=== PATIENT | female | born 1950 | race Caucasian/White ===

== ENCOUNTER 2017-01-21 14:32 | Observation (INO) ==
[2017-01-21] MEDS ORDERED: Ondansetron 4 MG/2 ML VIAL IVP ONE (17:36)
[2017-01-21] MEDS ORDERED: *HR* HYDROmorphone (PF) 1 MG/ML SYRINGE IVP ONE ×2 (17:36→19:21)
--- NOTE | 2017-01-21 17:39 | Emergency Department Note ---
Disposition Clinical Impression: Ureterolithiasis UTI (urinary tract infection) Qualifiers: Urinary tract infection type: acute cystitis Hematuria presence: without hematuria Qualified Code(s): N30.00 - Acute cystitis without hematuria Disposition: Admitted As Inpatient Condition: Good Referrals: Vandana Heart, EMPLOYEE BENEFITS COORDINATOR [Primary Care Provider] - Forms: Work/School Release, ED Satisfaction Letter Time of Disposition: 19:41 Abdominal Pain HPI - General Chief Complaint: ED Abdominal Pain Stated Complaint: Lower Back Pain N/V Time Seen by Provider: 01/21/17 17:28 Source: patient Mode of arrival: ambulatory Limitations: no limitations Nursing Notes Reviewed: Yes Vital Signs Reviewed: Yes - History of Present Illness HPI Narrative: 66-year-old with acute onset of left flank and left lower quadrant pain earlier today. The pain started she started to have vomiting. Patient has never had a kidney stone but thinks that this may be what is going on. Pt Subjective Complaint: abdominal pain, flank pain Onset (ago): Just IN [employer] Consistency: constant Location: LLQ, L flank Pain Severity: moderate Pain Scale: 5 Quality: aching Radiation: none Migration to: no migration Improves with: nothing Worsens with: nothing Associated symptoms: Reports: nausea Treatments prior to arrival: none - Related Data Allergies Allergy/AdvReac Type Severity Reaction Status Date / Time No Known Allergies Allergy Verified 01/21/17 14:58 All systems ED: reviewed and negative except as stated. Constitutional: Denies: fever, chills, weakness, weight change Eyes: Denies: eye pain, eye discharge, vision change ENT ED: Denies: ear pain, throat pain, dental pain, hearing loss, epistaxis, congestion, dysphagia Cardiovascular: Denies: chest pain, palpitations, dyspnea on exertion, edema, syncope Respiratory: Denies: cough, dyspnea, wheezes, hemoptysis, stridor Gastrointestinal: Reports: abdominal pain. Denies: nausea, vomiting, diarrhea, constipation, hematemesis, melena, hematochezia Genitourinary: Denies: dysuria, frequency, hematuria, discharge Musculoskeletal: Reports: back pain. Denies: neck pain, arthralgia, myalgia Integumentary: Denies: rash, abrasion, lesions Neurological: Denies: headache, weakness, numbness, paresthesias, confusion, abnormal gait, vertigo Psychiatric: Denies: anxiety, depression, suicidal thoughts, homicidal thoughts , auditory hallucinations, visual hallucinations Endocrine: Denies: fatigue Hematological/Lymphatic: Denies: easy bleeding, easy bruising Allergic/Immunologic: Denies: facial swelling, urticaria Abdominal Pain PMH - Past Medical History Medical history: Reports: thyroid disease Psychiatric history: Reports: no psych history - Social History Smoking status: Never smoker Alcohol use: Reports: rarely Drug use: Reports: none Physical Exam - General Limitations: no limitations General appearance: alert, in no apparent distress - Head Head exam: atraumatic, normocephalic, normal inspection - Eye Eye exam: Present: normal appearance, PERRL, EOMI - ENT ENT exam: normal exam, normal oropharynx, mucous membranes moist - Neck Neck exam: Present: normal inspection, full ROM, trachea midline - Chest Chest inspection: Present: normal inspection, symmetric chest wall rise - Respiratory Respiratory exam: Present: normal lung sounds bilaterally - Cardiovascular Cardiovascular exam: Present: regular rate, normal rhythm, normal heart sounds - Abdominal Exam Abdominal exam: Present: soft, Non-Tender. Absent: tenderness, distention, guarding, rebound, rigidity - Extremities Exam Extremities exam: Present: normal inspection, full ROM. Absent: tenderness, pedal edema - Expanded Lower Extremity Exam Neurovascular/Tendon exam: Absent: motor deficit, sensory deficit, tendon deficit Gait: observed and normal - Back Exam Back exam: Present: normal inspection, full ROM. Absent: tenderness - Neurological Exam Neurological exam: Present: alert, oriented X3 - Psychiatric Psychiatric exam: Present: normal affect, normal mood - Skin Skin exam: Present: warm, dry, intact, normal color Course - Reevaluation(s) Reevaluation #1: 66-year-old comes in with flank pain is found to have a 5 mm distal left ureteral stone with hydronephrosis. Urine appears to be infected with white cells and red cells and bacteria. Patient will be admitted to urology for stone extraction. Time: 19:40 - Consultations Consultation #1: Discussed with Dr. Camacho who will admit the patient. Time: 19:40 Vital Signs Temperature 98.3 F 01/21/17 14:58 Pulse Rate 106 01/21/17 14:58 Respiratory Rate 16 01/21/17 14:58 Blood Pressure 184/98 01/21/17 14:58 O2 Sat by Pulse Oximetry 93 01/21/17 14:58 Temperature 98.3 F 01/21/17 14:58 Pulse Rate 106 01/21/17 14:58 Respiratory Rate 16 01/21/17 14:58 Blood Pressure 184/98 01/21/17 14:58 O2 Sat by Pulse Oximetry 93 01/21/17 14:58 Oxygen Delivery Oxygen Delivery Room Air Abdominal Pain - Lab Data Lab results reviewed: Yes I reviewed the patient's lab results. Result diagrams: 01/21/17 18:25 01/21/17 18:25 Lab Results 01/21/17 01/21/17 01/21/17 Range/Units 17:33 18:25 18:25 WBC 19.7 H (4.3-11.1) K/mcL RBC 5.09 H (3.82-4.97) M/mcL Hgb 15.8 H (11.5-15.4) g/dL Hct 46.5 H (35.3-44.9) % MCV 91.4 (83.0-100.0) fL MCH 31.0 (28.0-33.3) pg MCHC 34.0 (31.6-35.5) g/dL RDW 12.8 (11.5-14.5) % Plt Count 154 (140-400) K/mcL MPV 8.7 L (9.4-12.4) fL Immature Gran % 0.4 (0-4) % Seg Neutrophils % 89.1 % Lymphocytes % 4.2 % Monocytes % 6.1 % Eosinophils % 0.0 % Basophils % 0.2 % Neutrophils # 17.5 H (1.6-8.9) K/mcL Lymphocytes # 0.8 (0.6-4.6) K/mcL Monocytes # 1.2 (0.0-1.3) K/mcL Eosinophils # 0.0 (0.0-0.6) K/mcL Basophils # 0.0 (0.0-0.2) K/mcL Sodium 139 (136-145) mEq/L Potassium 4.2 (3.5-4.5) mEq/L Chloride 107 (98-109) mEq/L Carbon Dioxide 24 (19-29) mEq/L BUN 19 (7-20) mg/dL Creatinine 0.81 (0.57-1.11) mg/dL Est GFR ( Amer) > 60 (> 60) Est GFR (Non-Af Amer) > 60 (> 60) BUN/Creatinine Ratio 23 (6-26) Glucose 141 H (70-99) mg/dL Calculated Osmolality 293 (280-300) Calcium 11.6 H (8.6-10.8) mg/dL Total Bilirubin 0.6 (0.2-1.2) mg/dL Direct Bilirubin 0.3 (0.0-0.5) mg/dL Indirect Bilirubin 0.3 (0.0-1.2) mg/dL AST 22 (5-34) Units/L ALT 26 (0-55) Units/L Alkaline Phosphatase 110 (38-126) Units/L Serum Total Protein 7.1 (6.0-8.3) g/dL Albumin 3.7 (3.5-5.0) g/dL Globulin 3.4 (2.4-3.5) g/dL Albumin/Globulin Ratio 1.1 (1.1-2.2) Lipase < 10 (8-78) Units/L Urine Color Yellow (Yellow) Urine Clarity Slightly Hazy (Clear) Urine pH 6.5 (5.0-8.0) pH Units Ur Specific Davison 1.019 (1.010-1.025) Urine Protein 30 H (Neg-Trace) mg/dL Urine Glucose (UA) Normal (Normal) mg/dL Urine Ketones 15 H (Negative) mg/dL Urine Blood Large H (Negative) Urine Nitrite Negative (Negative) Urine Bilirubin Negative (Negative) Urine Urobilinogen Normal (Normal) mg/dL Ur Leukocyte Esterase Moderate H (Negative) Urine Microscopic RBC 30-50 H (0-3) per hpf Urine Microscopic WBC 30-50 H (0-3) per hpf Ur Squamous Epith Cells Few (None-Few) per lpf Urine Bacteria Moderate H (None-Few) per hpf Hyaline Casts None Seen (None-Few) per lpf Ur Culture Indicated? YES A (NO) - Radiology Data Radiology results reviewed: Yes I reviewed the patient's radiology results. Abdomen/Pelvis CT 01/21/17 17:34 IMPRESSION: 1. There is a 5 mm stone within the distal left ureter, resulting in moderate left-sided hydronephrosis. 2. Multiple bilateral nonobstructing renal calculi. 3. Cholelithiasis. 4. Colonic diverticulosis. D/ / 01/21/2017 18:25:53 Young Sanderson MD / doni Interpreting Provider: Young Sanderson MD
[2017-01-21 17:45] LABS: Bilirubin,Urine Negative (Negative); Blood,Urine Large (Negative); Color,Urine Yellow (Yellow); Glucose,Urine (UA) Normal (Normal); Ketones,Urine 15 mg/dL (Negative); Leukocyte Esterase,Urine Moderate (Negative); Nitrite,Urine Negative (Negative); PH,Urine 6.5 pH Units (5.0-8.0); Protein,Urine 30 mg/dL (Neg-Trace); Specific Gravity,Urine 1.019 (1.010-1.025); Urobilinogen,Urine Normal (Normal)
[2017-01-21 17:47] LABS: Hyaline Casts,Urine None Seen per lpf (None-Few)
[2017-01-21 17:48] LABS: Clarity,Urine Slightly Hazy (Clear)
[2017-01-21 17:58] LABS: Squamous Epithelial Cell,Urine Few per lpf (None-Few)
[2017-01-21 17:59] LABS: RBC,Urine 30-50 per hpf (0-3); WBC,Urine 30-50 per hpf (0-3)
[2017-01-21 18:01] LABS: Bacteria,Urine Moderate per hpf (None-Few)
[2017-01-21 18:39] LABS: Basophils % 0.2 %; Hematocrit 46.5 % (35.3-44.9); Hemoglobin 15.8 g/dL (11.5-15.4); Immature Granulocytes % 0.4 % (0-4); Lymphocytes # 0.8 K/mcL (0.6-4.6); Lymphocytes % 4.2 %; Mean Corpuscular Volume 91.4 fL (83.0-100.0); Mean Platelet Volume 8.7 fL (9.4-12.4); Monocytes # 1.2 K/mcL (0.0-1.3); Monocytes % 6.1 %; Neutrophils # 17.5 K/mcL (1.6-8.9); Platelet Count 154 K/mcL (140-400); Red Blood Count 5.09 M/mcL (3.82-4.97); Red Cell Distribution Width 12.8 % (11.5-14.5); Segmented Neutrophils % 89.1 %
[2017-01-21 18:54] LABS: Alanine Aminotransferase 26 Units/L (0-55); Albumin 3.7 g/dL (3.5-5.0); Albumin/Globulin Ratio 1.1 (1.1-2.2); Alkaline Phosphatase 110 Units/L (38-126); Aspartate Amino Transferase 22 Units/L (5-34); BUN/Creatinine Ratio 23 (6-26); Bilirubin,Direct 0.3 mg/dL (0.0-0.5); Bilirubin,Indirect 0.3 mg/dL (0.0-1.2); Bilirubin,Total 0.6 mg/dL (0.2-1.2); Blood Urea Nitrogen 19 mg/dL (7-20); Calcium 11.6 mg/dL (8.6-10.8); Carbon Dioxide 24 mEq/L (19-29); Chloride 107 mEq/L (98-109); Globulin 3.4 g/dL (2.4-3.5); Glucose 141 mg/dL (70-99); Osmolality,Calculated 293 (280-300); Sodium 139 mEq/L (136-145); Total Protein 7.1 g/dL (6.0-8.3); eGFR For African Americans > 60 (> 60); eGFR For Non-African Americans > 60 (> 60)
[2017-01-21 18:56] LABS: Lipase < 10 Units/L (8-78); Potassium 4.2 mEq/L (3.5-4.5)
[2017-01-21] MEDS ORDERED: Naloxone 0.4 MG/ML INJ IVP PRN (20:31)
[2017-01-21] MEDS ORDERED: *HR* Morphine 2 MG/ML SYRINGE IVP PRN (20:31)
[2017-01-21] MEDS ORDERED: Ondansetron 4 MG/2 ML VIAL IVP PRN (20:31)
[2017-01-21] MEDS ORDERED: *HR* Promethazine 25 MG/ML VIAL IVP PRN (20:31)
--- NOTE | 2017-01-21 20:39 | Urology History & Physical ---
Date of Encounter: 01/22/17 Time of Encounter: 20:37 Assessment and Plan (1) Ureteral stone with hydronephrosis Current Visit: Yes Status: Acute Because of her pain and acute illness we'll proceed with a ureteroscopic stone extraction with holmium laser lithotripsy. Procedure was discussed in detail including potential risks of injury to her urinary tract, stricture, worsening infection, inability to retrieve the stone, stent complications her discomfort. We did discuss trial of passage as an alternative therapy (2) Elevated WBC count Current Visit: Yes Status: Acute Leukocytosis may be due to infection or reaction to the stone. Continue antibiotics. Follow urine culture. Qualifiers: Leukocytosis type: unspecified Qualified Code(s): D72.829 - Elevated white blood cell count, unspecified History of Present Illness Chief complaint: flank pain and N/V HPI: Ms. Sandra is a 66 year old female presented to the ER with severe flank and abdominal pain along with nausea vomiting. CT scan shows a 5 mm distal ureteral calculi. White cell count at 19,000. fever overnight to 100.3 Past Med Surg Social Fam HX - Past Medical History Medical history: thyroid disease Psychiatric history: no psych history - Social History Smoking Status: Never smoker Smokeless Tobacco Status: No Alcohol use: rarely Drug use: none Medications and Allergies Aspirin Enteric Coated [Aspirin EC] 81 mg PO DAILY 01/21/17 [History] Levothyroxine [Synthroid] 175 mcg PO 0630 01/21/17 [History] Multivitamin [Multi-Day Vitamins] 1 each PO DAILY 01/21/17 [History] 3 Allergy/AdvReac Type Severity Reaction Status Date / Time No Known Allergies Allergy Verified 01/21/17 14:58 Review of Systems - Constitutional malaise, no chills, no fever(s) - EENT Nose, mouth and throat: no dizziness - Cardiovascular no chest pain - Respiratory no cough - Gastrointestinal abdominal pain, nausea, vomiting - Genitourinary Genitourinary: flank pain - Musculoskeletal back pain - Integumentary no erythema - Neurological no confusion - Psychiatric no anxiety - Hematologic/Lymphatic no easy bleeding - Allergic/Immunologic no throat swelling Exam Initial Vital Signs Temp Pulse Resp BP Pulse Ox 98.3 F 106 16 184/98 93 01/21/17 14:58 01/21/17 14:58 01/21/17 14:58 01/21/17 14:58 01/21/17 14:58 - General physical appearance Present: well developed, moderate pain - Eyes Present: PERRL - ENT Present: normal nares - Neck Present: no masses - Respiratory Present: normal respiratory effort - Cardiovascular Cardiovascular exam IM: RRR - Abdomen Abdomen: Present: soft - Integumentary Present: no rash, no abnormal pigmentation - Neurologic Present: normal coordination - Musculoskeletal Present: normal gait Urology Results - Labs 01/22/17 04:56 01/22/17 04:56 Abnormal lab results WBC 19.7 K/mcL (4.3-11.1) H 01/21/17 18:25 RBC 5.09 M/mcL (3.82-4.97) H 01/21/17 18:25 Hgb 15.8 g/dL (11.5-15.4) H 01/21/17 18:25 Hct 46.5 % (35.3-44.9) H 01/21/17 18:25 MPV 8.7 fL (9.4-12.4) L 01/21/17 18:25 Neutrophils # 17.5 K/mcL (1.6-8.9) H 01/21/17 18:25 Glucose 141 mg/dL (70-99) H 01/21/17 18:25 Calcium 11.6 mg/dL (8.6-10.8) H 01/21/17 18:25 Urine Protein 30 mg/dL (Neg-Trace) H 01/21/17 17:33 Urine Ketones 15 mg/dL (Negative) H 01/21/17 17:33 Urine Blood Large (Negative) H 01/21/17 17:33 Ur Leukocyte Esterase Moderate (Negative) H 01/21/17 17:33 Urine Microscopic RBC 30-50 per hpf (0-3) H 01/21/17 17:33 Urine Microscopic WBC 30-50 per hpf (0-3) H 01/21/17 17:33 Urine Bacteria Moderate per hpf (None-Few) H 01/21/17 17:33 Ur Culture Indicated? YES (NO) A 01/21/17 17:33 All other labs normal.
[2017-01-21] MEDS: *HR* HYDROmorphone (PF) 1 MG/ML SYRINGE IVP PRN (21:36)
[2017-01-21] MEDS: 0.9 % Sodium Chloride 1,000 ML IVC SCH (21:43)
[2017-01-21] MEDS: Ketorolac 15 MG/ML VIAL IVP PRN (21:59)
[2017-01-22] MEDS: *HR* HYDROmorphone (PF) 1 MG/ML SYRINGE IVP PRN ×3 (01:49→14:18)
[2017-01-22] MEDS: Ketorolac 15 MG/ML VIAL IVP PRN (03:58)
[2017-01-22 06:09] LABS: BUN/Creatinine Ratio 23 (6-26); Basophils % 0.2 %; Blood Urea Nitrogen 20 mg/dL (7-20); Calcium 10.7 mg/dL (8.6-10.8); Carbon Dioxide 24 mEq/L (19-29); Chloride 107 mEq/L (98-109); Eosinophils % 0.1 %; Glucose 120 mg/dL (70-99); Hemoglobin 14.3 g/dL (11.5-15.4); Immature Granulocytes % 0.3 % (0-4); Lymphocytes # 0.5 K/mcL (0.6-4.6); Lymphocytes % 3.8 %; Mean Corpuscular HGB Conc 33.3 g/dL (31.6-35.5); Mean Corpuscular Hemoglobin 30.7 pg (28.0-33.3); Mean Corpuscular Volume 92.3 fL (83.0-100.0); Mean Platelet Volume 8.9 fL (9.4-12.4); Monocytes # 0.6 K/mcL (0.0-1.3); Monocytes % 4.7 %; Neutrophils # 11.5 K/mcL (1.6-8.9); Osmolality,Calculated 292 (280-300); Platelet Count 150 K/mcL (140-400); Potassium 4.1 mEq/L (3.5-4.5); Red Blood Count 4.66 M/mcL (3.82-4.97); Red Cell Distribution Width 13.2 % (11.5-14.5); Segmented Neutrophils % 90.9 %; Sodium 139 mEq/L (136-145); eGFR For African Americans > 60 (> 60); eGFR For Non-African Americans > 60 (> 60)
[2017-01-22] MEDS: 0.9 % Sodium Chloride 1,000 ML IVC SCH ×2 (07:27→18:40)
--- NOTE | 2017-01-22 16:21 | Anesthesia Evaluation PreOp ---
Date of Encounter: 01/22/17 Time of Encounter: 16:19 - Past History Planned Operation: Left Ureteroscopic Stone Extractoin Cardiac History: Denies any Significant Hx Pulmonary History: Denies Any Significant HX ULTIMATE HOOPS TRAINER History: Denies Any Significant HX Other Medical History: Thyroid Anesthesia History: No Prior Anesthetic Complications, Past Anesthesia Alcohol Use: rarely Drug use: none Medications and Allergies Aspirin Enteric Coated [Aspirin EC] 81 mg PO DAILY 01/21/17 [History] Levothyroxine [Synthroid] 175 mcg PO 0630 01/21/17 [History] Multivitamin [Multi-Day Vitamins] 1 each PO DAILY 01/21/17 [History] 3 Allergy/AdvReac Type Severity Reaction Status Date / Time No Known Allergies Allergy Verified 01/21/17 14:58 - Meds/Allergy Pre-op Review Medications Reviewed: Yes Allergies Reviewed: Yes Beta Blockers on Current Med List: No Anesthesia Results - Labs 01/22/17 04:56 01/22/17 04:56 Anesthesia Exam Vital Signs/O2 Sat/Glucose, Most Recent Temp Pulse Resp BP Pulse Ox 98.4 F 84 18 115/68 93 01/22/17 15:46 01/22/17 15:46 01/22/17 15:46 01/22/17 15:46 01/22/17 15:46 Blood Glucose* 101 Height: 5'9''/1.75 m Weight: 217 lbs/98.7 kg NPO (# of Hours): 8 Pain Scale: 0 Pain Scale Used: Numeric (1 - 10) - HEENT Pupil (Motor): EOMI Mallampati: II Teeth: Normal Oral Opening: Greater than 3 - ULTIMATE HOOPS TRAINER LOC: Oriented ULTIMATE HOOPS TRAINER Motor: Normal RUE, Normal LUE, Normal RLE, Normal LLE, Normal Face ULTIMATE HOOPS TRAINER Sensory: Normal: RUE, LUE, RLE, LLE, Face - Cardiac Rhythm: Regular Murmur: None - Pulmonary Breath Sounds: bilateral Clear Respiratory Effort: Symmetrical Anesthesia Assess/Plan ASA Score: 2 Modified Melvin Scale for Level of Consciousness: Cooperative, oriented, and tranquil Anesthetic Plan: General Monitoring Plan: Standard Monitors Recovery Plan: PACU
--- NOTE | 2017-01-22 16:37 | Operative Note ---
Date of procedure: 01/22/17 Pre-op diagnosis: 5 mm left distal ureteral stone Post-op diagnosis: same Procedure: left ureteroscopic stone extraction with holium laser left retrograde pyelogram left JJ stent Anesthesia: GETA Surgeon: Colt Camacho Estimated blood loss (cc): 0 Specimen: stone Condition: stable Procedure in Detail: PROCEDURE IN DETAIL: Patient was taken back to the operating room, positioned supine on the operating table. Anesthesia was applied without complication. They were moved into dorsal lithotomy. Careful attention was maintained to cushion all pressure points for patient's safety. They were prepped and draped in sterile fashion. Time-out was performed with the proper patient and procedure. A 21-[place] rigid cystoscope was inserted into the bladder without difficulty. Systematic examination of bladder revealed no abnormalities. The ureteral orifice was cannulated using a 5-B[place]an ureteral Catheter and a retrograde pyelogram was performed using Isovue. A filling defect was identified which corresponded to the stone. At that point, a zip wire was placed through the 5-[place] and confirmed in the renal pelvis with fluoroscopy. An 8-10 dilator was then placed over the zip wire to passively dilate the ureteral orifice. A semi-rigid ureteroscope was carefully inserted into the bladder and guided into the ureteral oriface. At that point, the stone was encountered and I felt that it required fragmentation for safe extraction. a moderate amount of purulent urine returned after I reached the stone but I felt it appropriate to complete the stone extraction as it added minimal manipulation. A 200 micron holmium laser fiber on a setting of 8 and 800 was used to fragment the stone into multiple pieces. The fragments were individually basketed out of the ureter with a 1.9 tipless basket. All stone in the ureter was removed. A 4.8 x 26 ureteral stent was placed over the zip wire under fluoroscopy without complication. The bladder was drained along with the stone fragments. They were collected and sent for stone analysis. no string was left attached.
[2017-01-22] MEDS ORDERED: *HR* FentaNYL (PF) 100 MCG/2 ML VIAL ONE (16:49)
[2017-01-22] MEDS ORDERED: Ondansetron 4 MG/2 ML VIAL ONE (16:50)
[2017-01-22] MEDS ORDERED: Propofol 500 MG/50 ML INFUS..BTL ONE (16:50)
[2017-01-22] MEDS ORDERED: Dexamethasone 4 MG/ML VIAL ONE (16:50)
[2017-01-22] MEDS ORDERED: Lidocaine -MPF 2% 2 ML VIAL ONE (16:50)
[2017-01-22] MEDS ORDERED: Ondansetron 4 MG/2 ML VIAL IVP PRN ×2 (16:52→18:09)
[2017-01-22] MEDS ORDERED: *HR* HYDROmorphone (PF) 1 MG/ML SYRINGE IVP PRN ×2 (16:52→18:09)
[2017-01-22] MEDS ORDERED: Acetaminophen IV 1,000 MG/100 ML INFUS..BTL ONE (17:23)
[2017-01-22] MEDS ORDERED: Acetaminophen IV 1,000 MG/100 ML INFUS..BTL IVPB ONE (17:26)
--- NOTE | 2017-01-22 18:04 | Anesthesia Evaluation Post Op ---
Date of Encounter: 01/22/17 Time of Encounter: 18:04 - Vital Signs Vital Signs: Vital Signs/O2 Sat, Most Current Temp Pulse Resp BP Pulse Ox 100.3 F H 102 14 118/54 93 01/22/17 17:50 01/22/17 18:00 01/22/17 18:00 01/22/17 18:00 01/22/17 18:00 - Lungs Lungs: Clear Ascult./Percussion - Airway Airway: Non-obstructed - Cardiovascular Regular Rate - Mental Status Mental Status: Asleep with brisk response to light stimulation - Pain Pain Scale: 0 Pain Scale used: Numeric (1 - 10) - Nausea Vomiting Nausea Vomiting: Not Present - Hydration Hydration: NPO, Has not voided - Discharge PostOp Status: Transfer Patient to floor
[2017-01-22] MEDS ORDERED: Naloxone 0.4 MG/ML INJ IVP PRN (18:09)
[2017-01-22] MEDS ORDERED: *HR* OxyCODONE/APAP 5/325 TABLET PO PRN (18:09)
[2017-01-22] MEDS ORDERED: *HR* Promethazine 25 MG/ML VIAL IVP PRN (18:09)
[2017-01-22] MEDS ORDERED: Ketorolac 15 MG/ML VIAL IVP PRN (18:09)
[2017-01-22] MEDS ORDERED: Hyoscyamine SL 0.125 MG TAB.SUBL SL PRN (18:09)
[2017-01-23] MEDS: 0.9 % Sodium Chloride 1,000 ML IVC SCH (05:52)
--- NOTE | 2017-01-23 06:23 | Discharge Summary ---
Date of Encounter: 01/23/17 Time of Encounter: 06:21 - Discharge Diagnosis (1) Ureteral stone with hydronephrosis Priority: Primary Status: Resolved (2) Elevated WBC count Priority: Secondary Status: Resolved Qualifiers: Leukocytosis type: unspecified Qualified Code(s): D72.829 - Elevated white blood cell count, unspecified - Discharge Medications Prescriptions: OxyCODONE/APAP 5/325 [Percocet 5/325 MG] 1 each PO Q4HR PRN #15 tab PRN Reason: Mild to moderate pain (1-6) Levofloxacin [Levaquin] 500 mg PO DAILY #10 tablet Phenazopyridine [Pyridium] 200 mg PO TID PRN #20 tab PRN Reason: burning with urination Home Medications: Aspirin Enteric Coated [Aspirin EC] 81 mg PO DAILY 01/21/17 [History] Levothyroxine [Synthroid] 175 mcg PO 0630 01/21/17 [History] Multivitamin [Multi-Day Vitamins] 1 each PO DAILY 01/21/17 [History] Levofloxacin [Levaquin] 500 mg PO DAILY #10 tablet 01/23/17 [Rx] OxyCODONE/APAP 5/325 [Percocet 5/325 MG] 1 each PO Q4HR PRN #15 tab 01/23/17 [Rx ] Phenazopyridine [Pyridium] 200 mg PO TID PRN #20 tab 01/23/17 [Rx] Allergies/Adverse Reactions: 3 Allergy/AdvReac Type Severity Reaction Status Date / Time No Known Allergies Allergy Verified 01/21/17 14:58 Labs on day of discharge: Labs from last 24 hours 01/22/17 01/22/17 11:28 05:54 POC Glucose 101 H 118 H - Impressions ITS Impressions Fluoroscopy 01/22/17 16:52 IMPRESSION: Intraprocedural fluoroscopic images demonstrate ongoing placement of double-J ureteral stent. Please see separately dictated procedural note for complete intraprocedural findings. D/ / Russ Collins MD / Russ Collins MD Interpreting Provider: Russ Collins MD Date of admission: 01/21/17 20:04 Primary care physician: Vandana eHart CNP Discharging clinician: Colt Camacho Anticipated date of discharge: 01/23/17 - Patient Status Disposition: Home, Self-Care Condition: Good Functional capacity at discharge: independent ambulation Overall status at discharge: patient is progressing back to baseline - Discharge Instructions Follow Up With: Vandana Heart CNP [Primary Care Provider] - Colt Camacho MD [Partnered Physician] - (1-2 weeks for cystoscopy stent removal) Additional Instructions: Expect stent discomfort including urgency, frequency, burning on urination, light blood in the urine, flank pain during urination. Low-grade temperature is not concerning. Call if persistent fever over 102 - Diet and Activity Activity: increase activity as tolerated Diet: advance to your usual diet - Hospital Course Hospital course: Ms. Sandra is a 66 year old female postoperative day #1 status post stone extraction and stent placement. Likely associated infection but no fever overnight. She feels much better. No nausea. No pain. Urine cultures inconclusive. Will send home on Levaquin - Time Spent with Patient Total time spent providing and/or coordinating discharge services: Less than 30 minutes Exam Initial Vital Signs Temp Pulse Resp BP Pulse Ox 98.3 F 106 16 184/98 93 01/21/17 14:58 01/21/17 14:58 01/21/17 14:58 01/21/17 14:58 01/21/17 14:58 - General physical appearance Present: well developed, no distress - VTE Documentation of Mechanical Device: Intermittent pneumatic compression device
[2017-01-23 10:19] VITALS: BP 95/58
== END 2017-01-23 16:30 | disposition home or self-care (01) ==
LOC: EMEROO 14:32 → 3ANU 14:32
PROVIDERS: ADMIT Urology; ATTEND Urology

== ENCOUNTER 2018-05-03 11:28 | Observation (INO) ==
[2018-05-03] MEDS ORDERED: 0.9 % Sodium Chloride 1,000 ML IVC ONE (12:06)
[2018-05-03] MEDS ORDERED: Ondansetron 4 MG/2 ML VIAL IVP ONE ×2 (12:06→18:15)
[2018-05-03] MEDS ORDERED: *HR* HYDROmorphone (PF) 1 MG/ML SYRINGE IVP ONE (12:06)
[2018-05-03 12:27] LABS: Basophils % 0.2 %; Eosinophils % 0.1 %; Hematocrit 43.2 % (35.3-44.9); Hemoglobin 13.8 g/dL (11.5-15.4); Immature Granulocytes % 0.5 % (0-4); Lymphocytes # 0.9 K/mcL (0.6-4.6); Lymphocytes % 6.8 %; Mean Corpuscular HGB Conc 31.9 g/dL (31.6-35.5); Mean Corpuscular Hemoglobin 28.9 pg (28.0-33.3); Mean Corpuscular Volume 90.6 fL (83.0-100.0); Mean Platelet Volume 8.5 fL (9.4-12.4); Monocytes # 0.6 K/mcL (0.0-1.3); Monocytes % 4.5 %; Neutrophils # 11.4 K/mcL (1.6-8.9); Platelet Count 228 K/mcL (140-400); Red Blood Count 4.77 M/mcL (3.82-4.97); Segmented Neutrophils % 87.9 %
[2018-05-03 12:48] LABS: Alanine Aminotransferase 20 Units/L (7-52); Albumin/Globulin Ratio 1.2 (1.1-2.2); Alkaline Phosphatase 88 Units/L (34-104); Aspartate Amino Transferase 18 Units/L (13-39); BUN/Creatinine Ratio 16 (6-26); Bilirubin,Direct 0.1 mg/dL (0.0-0.2); Bilirubin,Indirect 0.4 mg/dL (0.0-1.2); Bilirubin,Total 0.5 mg/dL (0.3-1.0); Blood Urea Nitrogen 10 mg/dL (8-23); Calcium 11.3 mg/dL (8.6-10.3); Carbon Dioxide 27 mEq/L (23-29); Chloride 104 mEq/L (98-107); Globulin 3.4 g/dL (2.4-3.5); Glucose 145 mg/dL (70-105); Lipase 6 Units/L (11-82); Osmolality,Calculated 290 (280-300); Potassium 3.7 mEq/L (3.5-5.1); Sodium 139 mEq/L (136-145); Total Protein 7.4 g/dL (6.4-8.9); Troponin I < 0.03 ng/mL (< 0.04); eGFR For Non-African Americans > 60 (> 60)
[2018-05-03 14:09] LABS: Bilirubin,Urine Negative (Negative); Blood,Urine Moderate (Negative); Clarity,Urine Cloudy (Clear); Color,Urine Yellow (Yellow); Glucose,Urine (UA) Normal (Normal); Ketones,Urine 15 mg/dL (Negative); Leukocyte Esterase,Urine Large (Negative); Nitrite,Urine Positive (Negative); PH,Urine 7.5 pH Units (5.0-8.0); Protein,Urine Trace mg/dL (Neg-Trace); Specific Gravity,Urine 1.008 (1.010-1.025); Urobilinogen,Urine Normal (Normal)
[2018-05-03 14:12] LABS: Bacteria,Urine Many per hpf (None-Few); Hyaline Casts,Urine None Seen per lpf (None-Few); RBC,Urine 15-30 per hpf (0-3); Squamous Epithelial Cell,Urine None Seen per lpf (None-Few); WBC,Urine 50-100 per hpf (0-3)
[2018-05-03] MEDS ORDERED: cefTRIAXone 1,000 MG in Water for inj. (sterile) 20 ML 10 ML IVP ONE (14:37)
--- NOTE | 2018-05-03 14:41 | Emergency Department Note ---
Disposition Clinical Impression: Kidney stone UTI (urinary tract infection) Qualifiers: Urinary tract infection type: site unspecified Hematuria presence: with hematuria Qualified Code(s): N39.0 - Urinary tract infection, site not specified Disposition: Admitted As Inpatient Condition: Good Abdominal Pain HPI - General Chief Complaint: ED Abdominal Pain Stated Complaint: Possible kidney stone Time Seen by Provider: 05/03/18 12:01 Source: patient, family Mode of arrival: ambulatory Limitations: no limitations Nursing Notes Reviewed: Yes Vital Signs Reviewed: Yes - History of Present Illness HPI Narrative: Patient presents for evaluation of lower abdominal pain. Patient states feels similar to previous kidney stone. Patient states that she recently started getting kidney stones after she was diagnosed with parathyroid disease. Patient's pain radiates across the lower abdomen as well as lower back. She is not had significant dysuria or vaginal discharge. No fevers or chills but nausea with multiple episodes of nonbloody nonbilious emesis. Patient will undergo further evaluation of possible kidney stone Pain Scale: 1 - Related Data Home Medications Medication Instructions Recorded Confirmed RX: Aspirin Enteric Coated 81 mg PO DAILY 01/21/17 05/03/18 [Aspirin EC] RX: Levothyroxine [Synthroid] 175 mcg PO QAM 01/21/17 05/03/18 Multivitamin [One Daily Essential] 1 each PO DAILY 03/09/18 05/03/18 Allergies Allergy/AdvReac Type Severity Reaction Status Date / Time No Known Allergies Allergy Verified 05/03/18 15:23 All systems ED: reviewed and negative except as stated. Review of Systems: As Per HPI Constitutional: Denies: fever, chills ENT ED: Denies: congestion Cardiovascular: Denies: chest pain, palpitations Respiratory: Denies: cough, dyspnea Gastrointestinal: Reports: abdominal pain, nausea, vomiting (No blood or bile). Denies: diarrhea, constipation Genitourinary: Denies: urgency, dysuria, frequency, hematuria Musculoskeletal: Denies: back pain Integumentary: Denies: rash Neurological: Denies: headache Endocrine: Reports: fatigue Abdominal Pain PMH - Past Medical History Medical history: Reports: kidney stones, thyroid disease Female Surgical History: Reports: other Psychiatric history: Reports: no psych history - Social History Smoking status: Never smoker Alcohol use: Reports: rarely Drug use: Reports: none Physical Exam General: Mild distress secondary to pain Head: Normocephalic Atraumatic Eyes: No scleral icterus ENT: Airway patent, no stridor Neck: supple, no meningismus Chest: Lungs clear to auscultation bilateral Cardiac: Regular rhythm Abdomen: soft, nontender, nondistended; no guarding, rebound, or tenderness to percussion; no CVA tenderness Musculoskeletal: Calves symmetric, nontender Skin: No rash, normal skin tone Neuro: Awake alert and answers questions appropriately; No focal deficit - General Limitations: no limitations General appearance: alert, in no apparent distress Course - Reevaluation(s) Reevaluation #1: Pain controlled. The patient's urinalysis is concerning for UTI with positive nitrates and leukoesterase. She has mildly elevated white count. Nausea is her biggest symptom at this time. Given her distal stone and significant urinary tract infection which previous cultures did show MRSA. Patient placed on ceftriaxone as well as vancomycin and admitted - Consultations Consultation #1: Discussed with urology. Patient to be admitted to the hospitalist service. Consultation #2: Discussed with hospitalist. Patient accepted for admission. Vital Signs Temperature 98.5 F 05/03/18 11:42 Pulse Rate 99 05/03/18 11:42 Respiratory Rate 18 05/03/18 11:42 Blood Pressure 186/92 05/03/18 11:42 O2 Sat by Pulse Oximetry 96 05/03/18 11:42 Temperature 98.5 F 05/03/18 11:42 Pulse Rate 63 05/03/18 14:10 Respiratory Rate 12 05/03/18 14:10 Blood Pressure 146/66 05/03/18 14:10 O2 Sat by Pulse Oximetry 97 05/03/18 14:10 Oxygen Delivery Oxygen Delivery Nasal Cannula Abdominal Pain - Lab Data Result diagrams: 05/03/18 12:15 05/03/18 12:15 Lab Results 05/03/18 05/03/18 05/03/18 Range/Units 12:15 12:15 13:55 WBC 13.0 H (4.3-11.1) K/mcL RBC 4.77 (3.82-4.97) M/mcL Hgb 13.8 (11.5-15.4) g/dL Hct 43.2 (35.3-44.9) % MCV 90.6 (83.0-100.0) fL MCH 28.9 (28.0-33.3) pg MCHC 31.9 (31.6-35.5) g/dL RDW 14.0 (11.5-14.5) % Plt Count 228 (140-400) K/mcL MPV 8.5 L (9.4-12.4) fL Immature Gran % 0.5 (0-4) % Seg Neutrophils % 87.9 % Lymphocytes % 6.8 % Monocytes % 4.5 % Eosinophils % 0.1 % Basophils % 0.2 % Neutrophils # 11.4 H (1.6-8.9) K/mcL Lymphocytes # 0.9 (0.6-4.6) K/mcL Monocytes # 0.6 (0.0-1.3) K/mcL Eosinophils # 0.0 (0.0-0.6) K/mcL Basophils # 0.0 (0.0-0.2) K/mcL Sodium 139 (136-145) mEq/L Potassium 3.7 (3.5-5.1) mEq/L Chloride 104 (98-107) mEq/L Carbon Dioxide 27 (23-29) mEq/L BUN 10 (8-23) mg/dL Creatinine 0.62 (0.60-1.20) mg/dL Est GFR ( Amer) > 60 (> 60) Est GFR (Non-Af Amer) > 60 (> 60) BUN/Creatinine Ratio 16 (6-26) Glucose 145 H (70-105) mg/dL Calculated Osmolality 290 (280-300) Calcium 11.3 H (8.6-10.3) mg/dL Total Bilirubin 0.5 (0.3-1.0) mg/dL Direct Bilirubin 0.1 (0.0-0.2) mg/dL Indirect Bilirubin 0.4 (0.0-1.2) mg/dL AST 18 (13-39) Units/L ALT 20 (7-52) Units/L Alkaline Phosphatase 88 (34-104) Units/L Troponin I < 0.03 (< 0.04) ng/mL Serum Total Protein 7.4 (6.4-8.9) g/dL Albumin 4.0 (3.5-5.7) g/dL Globulin 3.4 (2.4-3.5) g/dL Albumin/Globulin Ratio 1.2 (1.1-2.2) Lipase 6 L (11-82) Units/L Urine Color Yellow (Yellow) Urine Clarity Cloudy A (Clear) Urine pH 7.5 (5.0-8.0) pH Units Ur Specific [place] 1.008 L (1.010-1.025) Urine Protein Trace (Neg-Trace) mg/dL Urine Glucose (UA) Normal (Normal) mg/dL Urine Ketones 15 H (Negative) mg/dL Urine Blood Moderate H (Negative) Urine Nitrite Positive A (Negative) Urine Bilirubin Negative (Negative) Urine Urobilinogen Normal (Normal) mg/dL Ur Leukocyte Esterase Large H (Negative) Urine Microscopic RBC 15-30 H (0-3) per hpf Urine Microscopic WBC 50-100 H (0-3) per hpf Ur Squamous Epith Cells None Seen (None-Few) per lpf Urine Bacteria Many H (None-Few) per hpf Hyaline Casts None Seen (None-Few) per lpf Ur Culture Indicated? YES A (NO)
[2018-05-03] MEDS ORDERED: *HR* Promethazine 25 MG/ML VIAL IVP PRN ×2 (16:55→20:08)
[2018-05-03] MEDS ORDERED: Ondansetron 4 MG/2 ML VIAL IVP PRN ×2 (16:55→20:07)
[2018-05-03] MEDS ORDERED: Ketorolac 15 MG/ML VIAL IVP PRN ×2 (16:55→20:08)
[2018-05-03] MEDS ORDERED: Naloxone 0.4 MG/ML INJ IVP PRN ×2 (16:55→18:15)
[2018-05-03] MEDS ORDERED: Vancomycin 0 MG in 0.9 % Sodium Chloride 250 ML IVPB SCH (17:00)
[2018-05-03] MEDS ORDERED: Ringers Solution, Lactated 1,000 ML IVC SCH ×2 (17:00→18:15)
--- NOTE | 2018-05-03 17:03 | Internal Med History&Physical ---
Date of Encounter: 05/03/18 Time of Encounter: 16:45 Internal Medicine - H&P: HPI Chief complaint: Abdominal pain Admitted From: Emergency Dept Plans for Post Hospital Care: Home History of present illness: Ms. Sandra is a 68 year old female patient with a history of nephrolithiasis and acute urinary tract infection with MRSA recently presented to the ER with complaints of lower quadrant abdominal pain and suprapubic pain. She reports that the pain began at 6:30 AM this morning and was associated with nausea. Patient has had recurrent stones since last year. She was also diagnosed with a parathyroid adenoma and is on scheduled to undergo parathyroidectomy after [place]. She denies any fevers or chills. No diarrhea. Patient received antiemetics and Dilaudid in the ER with some improvement in her pain. She denies any dysuria. She has been passing urine normally. Past Med Surg Social Fam HX - Past Medical History Attestation: Yes The following information was validated with the patient. Source: patient Medical history: kidney stones, other (Parathyroid adenoma) Psychiatric history: no psych history - Past Surgical History Additional surgical history: Cataract surgery. foot surgery, tubal ligation - Social History Smoking Status: Never smoker Smokeless Tobacco Status: No Alcohol use: rarely Drug use: none - Family History Mother Living Status: Father Living Status: Hx Family Cancer: Yes Internal Medicine - H&P: Meds Aspirin Enteric Coated [Aspirin EC] 81 mg PO DAILY 01/21/17 [History] Levothyroxine [Synthroid] 175 mcg PO QAM 01/21/17 [History] Multivitamin [One Daily Essential] 1 each PO DAILY 03/09/18 [History] Allergy/AdvReac Type Severity Reaction Status Date / Time No Known Allergies Allergy Verified 05/03/18 15:23 All Systems PM: A 10-system review of systems was performed and is negative for pertinent findings except as documented above in the HPI. - Constitutional Constitutional: malaise, no chills, no fever(s), no night sweats - EENT Eyes: no change in vision, no discharge, no pain, no photophobia Ears: no ear discharge, no ear pain, no tinnitus Nose, mouth and throat: no dysphagia, no nasal discharge, no neck pain, no sore throat - Cardiovascular Cardiovascular ROS IM: no chest pain, no diaphoresis, no dyspnea, no lightheadedness, no palpitations, no syncope - Respiratory Respiratory: no cough, no dyspnea, no wheezing, no excessive phlegm production - Gastrointestinal Gastrointestinal: abdominal pain, no diarrhea, no hematemesis, no hematochezia, no melena, no nausea, no vomiting - Genitourinary Genitourinary: no change in urinary stream, no dysuria, no flank pain, no hematuria - Musculoskeletal Musculoskeletal ROS IM: no numbness, no tingling - Integumentary Integumentary IM: no rash, no unusual bruising - Neurological Neurological ROS: no confusion, no convulsions, no focal weakness, no numbness, no tingling, no tremor(s) - Constitutional Vitals: Temp Pulse Resp BP Pulse Ox 98.5 F 63 16 142/67 97 05/03/18 11:42 05/03/18 14:10 05/03/18 16:49 05/03/18 16:49 05/03/18 14:10 General appearance: Present: cooperative, A&O X 3, pleasant, answers questions appropriately Exam: General: Patient is alert, mild distress, oriented x 3 Head: atraumatic, normocephalic, ENT: Mucous membranes moist Eye: normal appearance, PERRL, no scleral icterus, no conjunctival injection Neck: normal inspection, trachea midline, full ROM, no carotid bruits Chest: normal inspection, symmetric chest rise Respiratory: Good respiratory effort. Normal breath sounds. No wheezing or crackles. Cardiovascular: Regular rate and rhythm. s1 and s2 normal No clicks, rubs, gallops, or murmurs. No pedal edema Abdomen: Abdomen is soft, suprapubic tenderness. Bowel sounds are present Musculoskeletal: Spontaneously moving all extremities Skin: warm, dry, intact. Neuro: Alert oriented x 3 normal cranial nerves, no focal deficits Psych: Patient's affect is normal Internal Med - H&P Results - Labs CBC & Chem 7: 05/03/18 12:15 05/03/18 12:15 Labs: Short CBC 05/03/18 Range/Units 12:15 WBC 13.0 H (4.3-11.1) K/mcL Hgb 13.8 (11.5-15.4) g/dL Hct 43.2 (35.3-44.9) % Plt Count 228 (140-400) K/mcL Neutrophils # 11.4 H (1.6-8.9) K/mcL BMP 05/03/18 12:15 Sodium 139 Potassium 3.7 Chloride 104 Carbon Dioxide 27 BUN 10 Creatinine 0.62 Glucose 145 H Calcium 11.3 H Cardiac Enzymes 05/03/18 Range/Units 12:15 Troponin I < 0.03 (< 0.04) ng/mL Liver Function 05/03/18 Range/Units 12:15 Total Bilirubin 0.5 (0.3-1.0) mg/dL Direct Bilirubin 0.1 (0.0-0.2) mg/dL AST 18 (13-39) Units/L ALT 20 (7-52) Units/L Alkaline Phosphatase 88 (34-104) Units/L Albumin 4.0 (3.5-5.7) g/dL Urine 05/03/18 Range/Units 13:55 Urine Color Yellow (Yellow) Urine Clarity Cloudy A (Clear) Urine pH 7.5 (5.0-8.0) pH Units Ur Specific [place] 1.008 L (1.010-1.025) Urine Protein Trace (Neg-Trace) mg/dL Urine Glucose (UA) Normal (Normal) mg/dL - Impressions ITS Impressions Abdomen/Pelvis CT 05/03/18 12:07 IMPRESSION: 7 mm calculus in the distal right ureter just above the UVJ causing moderate right hydroureteronephrosis. Additional bilateral nonobstructing renal calculi. Normal appendix. Cholelithiasis without evidence of acute cholecystitis. Slight sigmoid diverticulosis. D/ / John Mascorro MD / John Mascorro MD Interpreting Provider: John Mascorro MD - Assessment and plan (1) Ureteral stone with hydronephrosis Current Visit: Yes Status: Acute Assessment and plan: Right-sided distal ureteral stone measuring 7 mL in size with moderate right hydroureteronephrosis. Urology consulted. Place patient on IV fluids. Pain control. Antiemetics as needed. Moderate risk for complications. (2) UTI (urinary tract infection) Current Visit: Yes Status: Acute Assessment and plan: Acute UTI related to ureteral stone. Recent MRSA. Will place patient on vancomycin. Patient also grew Citrobacter recently. We will also place her on Rocephin. Follow culture results. Qualifiers: Urinary tract infection type: site unspecified Hematuria presence: with hematuria Qualified Code(s): N39.0 - Urinary tract infection, site not specified; R31.9 - Hematuria, unspecified - Time Spent With Patient Total time spent is greater than 50% in coordination of care (as documented) at patient's floor/unit and/or counseling patient:
--- NOTE | 2018-05-03 17:31 | Urology - Consult Note ---
Date of Encounter: 05/03/18 Time of Encounter: 17:28 - Assessment and Plan (1) UTI (urinary tract infection) Current Visit: Yes Status: Acute Assessment and plan: On antibiotics in the emergency department. Discussed urgent need for urinary diversion in setting of obstructing right distal ureteral calculus with hydronephrosis. Plan: Urgent urinary diversion by stenting Qualifiers: Urinary tract infection type: site unspecified Hematuria presence: with hematuria Qualified Code(s): N39.0 - Urinary tract infection, site not specified; R31.9 - Hematuria, unspecified (2) Ureteral stone with hydronephrosis Current Visit: Yes Status: Acute Assessment and plan: Discussed options for management in setting of active UTI. Plan: Urgent urinary diversion with stenting tonight. Definitive stone procedure once active UTI resolved (3) Renal calculus, left Current Visit: Yes Status: Acute Assessment and plan: Nonobstructing stones in the left kidney. Plan: Outpatient surgical address as per Dr. Camacho Urology CN:[facility] Consult date: 05/03/18 Reason for consult Urology: Other (Right ureteral calculus, hydronephrosis, UTI) Requesting physician: Shira Brown History of present illness: Very pleasant 68-year-old lady with long-standing history of nephrolithiasis and recently discovered hyperparathyroidism. She is known to my partner Dr. Camacho for management of kidney stones. She presents to emergency department symptomatic from a 7 mm Distal right ureteral calculus with hydronephrosis in the setting of active UTI. Fortunately, she has not developed sepsis. Admitted to medicine and I have been consulted. Past Med Surg Social Fam HX - Past Medical History Medical history: kidney stones, other (Parathyroid adenoma) Psychiatric history: no psych history - Past Surgical History Additional surgical history: Cataract surgery. foot surgery, tubal ligation - Social History Smoking Status: Never smoker Smokeless Tobacco Status: No Alcohol use: rarely Drug use: none - Family History Mother Living Status: Father Living Status: Hx Family Cancer: Yes Medications and Allergies Aspirin Enteric Coated [Aspirin EC] 81 mg PO DAILY 01/21/17 [History] Levothyroxine [Synthroid] 175 mcg PO QAM 01/21/17 [History] Multivitamin [One Daily Essential] 1 each PO DAILY 03/09/18 [History] Allergy/AdvReac Type Severity Reaction Status Date / Time No Known Allergies Allergy Verified 05/03/18 15:23 Review of Systems - Constitutional no chills, no fever(s) - EENT Nose, mouth and throat: no dry mouth, no headache(s) - Cardiovascular no chest pain, no diaphoresis - Respiratory no cough, no dyspnea - Gastrointestinal abdominal pain, nausea, vomiting - Genitourinary Genitourinary: no dysuria, no hematuria - Musculoskeletal no back pain, no muscle weakness - Integumentary no lesions, no rash - Neurological no confusion, no sensory deficit - Psychiatric no anxiety, no confusion - Hematologic/Lymphatic no easy bleeding, no easy bruising - Allergic/Immunologic no throat swelling, no wheezing Exam Initial Vital Signs Temp Pulse Resp BP Pulse Ox 98.5 F 99 18 186/92 96 05/03/18 11:42 05/03/18 11:42 05/03/18 11:42 05/03/18 11:42 05/03/18 11:42 - General physical appearance Present: well developed, well nourished, moderate distress - Eyes Present: normal ocular movement - ENT Present: normal mucosa, no hearing loss - Neck Present: trachea midline, no lymphadenopathy - Respiratory Present: normal respiratory effort - Abdomen Abdomen: Present: soft, non tender - Integumentary Present: no rash, no growths - Neurologic Present: normal coordination - Musculoskeletal Present: normal gait Urology Results - Labs 05/03/18 12:15 05/03/18 12:15 Abnormal lab results WBC 13.0 K/mcL (4.3-11.1) H 05/03/18 12:15 MPV 8.5 fL (9.4-12.4) L 05/03/18 12:15 Neutrophils # 11.4 K/mcL (1.6-8.9) H 05/03/18 12:15 Glucose 145 mg/dL (70-105) H 05/03/18 12:15 Calcium 11.3 mg/dL (8.6-10.3) H 05/03/18 12:15 Lipase 6 Units/L (11-82) L 05/03/18 12:15 Urine Clarity Cloudy (Clear) A 05/03/18 13:55 Ur Specific [place] 1.008 (1.010-1.025) L 05/03/18 13:55 Urine Ketones 15 mg/dL (Negative) H 05/03/18 13:55 Urine Blood Moderate (Negative) H 05/03/18 13:55 Urine Nitrite Positive (Negative) A 05/03/18 13:55 Ur Leukocyte Esterase Large (Negative) H 05/03/18 13:55 Urine Microscopic RBC 15-30 per hpf (0-3) H 05/03/18 13:55 Urine Microscopic WBC 50-100 per hpf (0-3) H 05/03/18 13:55 Urine Bacteria Many per hpf (None-Few) H 05/03/18 13:55 Ur Culture Indicated? YES (NO) A 05/03/18 13:55 Diabetes panel 05/03/18 Range/Units 12:15 Sodium 139 (136-145) mEq/L Potassium 3.7 (3.5-5.1) mEq/L Chloride 104 (98-107) mEq/L Carbon Dioxide 27 (23-29) mEq/L BUN 10 (8-23) mg/dL Creatinine 0.62 (0.60-1.20) mg/dL Glucose 145 H (70-105) mg/dL Calcium 11.3 H (8.6-10.3) mg/dL AST 18 (13-39) Units/L ALT 20 (7-52) Units/L Alkaline Phosphatase 88 (34-104) Units/L Albumin 4.0 (3.5-5.7) g/dL Calcium panel 05/03/18 Range/Units 12:15 Calcium 11.3 H (8.6-10.3) mg/dL Albumin 4.0 (3.5-5.7) g/dL Pituitary panel 05/03/18 Range/Units 12:15 Sodium 139 (136-145) mEq/L Potassium 3.7 (3.5-5.1) mEq/L Chloride 104 (98-107) mEq/L Carbon Dioxide 27 (23-29) mEq/L BUN 10 (8-23) mg/dL Creatinine 0.62 (0.60-1.20) mg/dL Glucose 145 H (70-105) mg/dL Calcium 11.3 H (8.6-10.3) mg/dL Adrenal panel 05/03/18 Range/Units 12:15 Sodium 139 (136-145) mEq/L Potassium 3.7 (3.5-5.1) mEq/L Chloride 104 (98-107) mEq/L Carbon Dioxide 27 (23-29) mEq/L BUN 10 (8-23) mg/dL Creatinine 0.62 (0.60-1.20) mg/dL Glucose 145 H (70-105) mg/dL Calcium 11.3 H (8.6-10.3) mg/dL Total Bilirubin 0.5 (0.3-1.0) mg/dL AST 18 (13-39) Units/L ALT 20 (7-52) Units/L Alkaline Phosphatase 88 (34-104) Units/L Albumin 4.0 (3.5-5.7) g/dL All other labs normal. - Imaging CT scan - abdomen: image reviewed CT scan - pelvis: image reviewed (Images reviewed and interpreted independently) Consult Discharge Plan - Plan Referrals: [facility], [employer] [Primary Care Provider] -
[2018-05-03] MEDS ORDERED: Dexamethasone 4 MG/ML VIAL ONE (17:49)
[2018-05-03] MEDS ORDERED: *HR* Midazolam HCl 2 MG/2 ML VIAL ONE (17:49)
[2018-05-03] MEDS ORDERED: *HR* Propofol 200 MG/20 ML VIAL IVP ONE (17:49)
[2018-05-03] MEDS ORDERED: Ondansetron 4 MG/2 ML VIAL ONE (17:49)
[2018-05-03] MEDS ORDERED: Lidocaine -MPF 2% 2 ML VIAL ONE (17:49)
[2018-05-03] MEDS ORDERED: *HR* FentaNYL (PF) 100 MCG/2 ML VIAL ONE (17:49)
--- NOTE | 2018-05-03 17:50 | Anesthesia Evaluation PreOp ---
Date of Encounter: 05/03/18 Time of Encounter: 17:50 - Past History Planned Operation: Rt Cystoscopy Stent Cardiac History: Denies any Significant Hx Pulmonary History: Denies Any Significant HX [employer] F[employer]ER History: Denies Any Significant HX Other Medical History: Thyroid Anesthesia History: No Prior Anesthetic Complications : No Alcohol Use: rarely Drug use: none Medications and Allergies Aspirin Enteric Coated [Aspirin EC] 81 mg PO DAILY 01/21/17 [History] Levothyroxine [Synthroid] 175 mcg PO QAM 01/21/17 [History] Multivitamin [One Daily Essential] 1 each PO DAILY 03/09/18 [History] Allergy/AdvReac Type Severity Reaction Status Date / Time No Known Allergies Allergy Verified 05/03/18 15:23 - Meds/Allergy Pre-op Review Medications Reviewed: Yes Allergies Reviewed: Yes Beta Blockers on Current Med List: No Anesthesia Results - Labs 05/03/18 12:15 05/03/18 12:15 Anesthesia Exam Vital Signs/O2 Sat/Glucose, Most Current Temp Pulse Resp BP Pulse Ox 05/03/18 17:19 97.5 F L 54 16 149/72 95 05/03/18 16:49 16 142/67 05/03/18 14:10 63 12 146/66 97 Height: 5'10 Weight: 190 lbs NPO (# of Hours): MN Pain Scale: 1 - HEENT Pupil (Motor): Pupils equal, EOMI Mallampati: II Teeth: Normal Oral Opening: Greater than 3 - CROCODILE FARMER LOC: Oriented [employer]ILE F[employer]ER Motor: Normal RUE, Normal LUE, Normal RLE, Normal LLE, Normal Face [employer] Sensory: Normal: RUE, LUE, RLE, LLE, Face - Cardiac Rhythm: Regular Murmur: None JVD: No Carotid Bruit: No - Pulmonary Breath Sounds: bilateral Clear Respiratory Effort: Symmetrical Anesthesia Assess/Plan ASA Score: 2 Level of consciousness: Cooperative Anesthetic Plan: General Autologous Blood: No Monitoring Plan: Standard Monitors Recovery Plan: PACU (Discussed GA, agrees to proceed)
[2018-05-03] MEDS ORDERED: Famotidine 20 MG/2 ML VIAL ONE (17:53)
[2018-05-03] MEDS ORDERED: Acetaminophen IV 1,000 MG/100 ML INFUS..BTL ONE (17:53)
[2018-05-03] MEDS ORDERED: *HR* OxyCODONE/APAP 5/325 TABLET PO PRN ×2 (18:15→20:07)
[2018-05-03] MEDS ORDERED: Albuterol 2.5 MG/3 ML NEBULIZER IH ONE (18:15)
[2018-05-03] MEDS ORDERED: *HR* Meperidine 25 MG/ML SYRINGE IVP PRN (18:15)
[2018-05-03] MEDS ORDERED: *HR* HYDROmorphone (PF) 1 MG/ML SYRINGE IVP PRN (18:15)
--- NOTE | 2018-05-03 18:33 | Operative Note ---
Date of procedure: 05/03/18 Pre-op diagnosis: Right ureteral calculus, hydronephrosis, UTI Post-op diagnosis: other (Same plus impacted right ureteral calculus) Procedure: Cystoscopy, right retrograde ureteral pyelography, intraoperative interpretation of all radiographic images in real time by surgeon to facilitate procedure, manipulation of impacted right ureteral calculus, right double-J stent placement Implants: Right 6 x 26 double-J stent Complications: None Anesthesia: GETA Surgeon: Mayco Daly Was there an office assistant receptionist present: No Estimated blood loss (cc): 2 Specimen: None Condition: stable Disposition: PACU Procedure in Detail: Very pleasant 68-year-old lady who presented with obstructing right ureteral calculus in setting of hydronephrosis and active UTI. After discussion of risk benefits and alternatives the patient presents for urgent urinary diversion by stent placement. The patient was brought to the operating theater placed on the table in supine position. The patient was identified by name and administered a general anesthetic. The patient was placed in dorsal lithotomy prepped and draped in normal sterile fashion. The cystoscope was inserted into the urethral meatus and advanced toward the bladder under direct visualization. There were inflammatory lesions scattered throughout the bladder consistent with active UTI. An open-ended catheter was placed in the tip of the right ureteral orifice and with gentle injection of contrast a right retrograde ureteropyelogram was performed. This abruptly ended at the distal ureter signifying an impacted stone. With significant force of injection we had a small amount contrast above the stone but not into the renal pelvis. Intraoperative interpretation of radial graphic image by surgeon in real time to facilitate procedure revealed impacted stone in the right distal ureter with difficulty injecting contrast above this stone due to significant degree of impaction. Based on this finding stent placement and stone manipulation was indicated. Through the open-ended catheter was attempted to advance an angled Glidewire. We met resistance at stone and were unable to pass the wire proximal to the stone. We then advanced the open-ended catheter up to the level stone. The open-ended catheter and wire were used to manipulate the stone significantly until we saw the wire pass fluoroscopically into the right renal pelvis. Over the existing Glidewire a 6 x 26 double-J stent was advanced. Once the stent was felt in good position the Glidewire was removed. Confirmation of the stent in good position was confirmed fluoroscopically via observing the distal curls of the stent the bladder and the proximal probe stent kidney. The patient's bladder was drained of irrigant and this ended the operative procedure.
[2018-05-03] MEDS ORDERED: Isovue-300 50 ML VIAL IVP ONE (18:46)
--- NOTE | 2018-05-03 19:05 | Anesthesia Evaluation Post Op ---
Date of Encounter: 05/03/18 Time of Encounter: 19:05 - Vital Signs Vital Signs: Vital Signs/O2 Sat/Glucose, Most Current Temp Pulse Resp BP Pulse Ox 05/03/18 18:55 69 16 125/60 94 05/03/18 18:45 77 16 127/64 99 05/03/18 18:40 76 18 112/50 99 05/03/18 18:35 98.8 F 77 18 119/53 98 05/03/18 17:19 97.5 F L 54 16 149/72 95 05/03/18 16:49 16 142/67 - Lungs Lungs: Clear Ascult./Percussion - Airway Airway: Non-obstructed - Cardiovascular Regular Rate - Mental Status Mental Status: Alert & Oriented, Answers Appropriately - Pain Pain Scale: 0 - Nausea Vomiting Nausea Vomiting: Not Present - Hydration Hydration: Ice chips - Discharge PostOp Status: Transfer Patient to floor
[2018-05-03] MEDS: Ringers Solution, Lactated 1,000 ML IVC SCH (23:31)
[2018-05-04] MEDS ORDERED: *HR* Heparin 5,000 UNIT/ML VIAL SQ SCH (06:00)
[2018-05-04] MEDS: Ringers Solution, Lactated 1,000 ML IVC SCH (07:59)
[2018-05-04] MEDS: Aspirin Enteric Coated 81 MG Tablet PO SCH (08:00)
[2018-05-04] MEDS: Multivit/Ca/Min/Fe/FA 1 TAB TABLET PO SCH (08:00)
[2018-05-04] MEDS ORDERED: Aspirin Enteric Coated 81 MG Tablet PO SCH (09:00)
[2018-05-04] MEDS ORDERED: Multivit/Ca/Min/Fe/FA 1 TAB TABLET PO SCH (09:00)
--- NOTE | 2018-05-04 09:31 | Internal Med Progress Note ---
<Luis Carlos Pablo U - Last Filed: 05/04/18 15:05> Hospitalist Progress Note - Encounter Date of Encounter: 05/04/18 Time of Encounter: 08:00 - Subjective Interval History: Pt was seen at bedside without any acute complaints. Pt does not have abdominal pain, flank pain, or dysuria. Pt did not have any interval changes overnight. Pt is doing well s/p urinary diversion by stenting. Removal of 7mm calculus from right UVJ once her UTI resolves. Pt had no signs of abdominal tenderness on palpation, no CVA tenderness. Pt has urinary incontinence for which she wears adult diapers (Depends). She has not been changing them routinely leading to slight amount of skin breakdown near lower sacrum region. Pt advised to change doupens regularly. - Exam Vitals: Temp Pulse Resp BP Pulse Ox 97.7 F 71 14 125/70 94 05/04/18 08:03 05/04/18 08:03 05/04/18 08:03 05/04/18 08:03 05/04/18 08:03 Exam: General: Patient is alert, mild distress, oriented x 3 Head: atraumatic, normocephalic, ENT: Mucous membranes moist Neck: normal inspection, trachea midline, full ROM Chest: normal inspection, symmetric chest rise Respiratory: Good respiratory effort. Normal breath sounds. No wheezing or crackles. Cardiovascular: Regular rate and rhythm. s1 and s2 normal No clicks, rubs, gallops, or murmurs. No pedal edema Abdomen: Abdomen is soft, suprapubic tenderness. Bowel sounds are present Musculoskeletal: Spontaneously moving all extremities Skin: warm, dry, intact. Neuro: Alert oriented x 3 normal cranial nerves, no focal deficits Psych: Patient's affect is normal - Assessment and Plan (1) Ureteral stone with hydronephrosis Current Visit: Yes Status: Acute Assessment and Plan: Right-sided distal ureteral stone measuring 7 mm in size with moderate right hydroureteronephrosis. Moderate risk for complications. Once UTI resolves, pt can get stone removed. Plan: - Urology performed urinary diversion by stenting - IV fluids - Pain control - Antiemetics as needed (2) UTI (urinary tract infection) Current Visit: Yes Status: Acute Assessment and Plan: Acute UTI related to ureteral stone. Pt had a recent UTI positive for Citobacter and MRSA. Pt wears adult diapers (Depends) for urinary incontience and does not regularly change them, which may also be a cause of recurrent UTI. Pt advised to change duopens regularly. Plan: - Rocephin (day 2) - Vancomycin (day 2) - Urine cultures pending - Once UTI resolves, urology will take out right UVJ 7 mm calculus - Time Spent with Patient Total time spent is greater than 50% in coordination of care (as documented) at patient's floor/unit and/or counseling patient: Plan of Care Discussed with: patient Internal Medicine: Result - Labs CBC & Chem 7: 05/03/18 12:15 05/03/18 12:15 Labs: Short CBC 05/03/18 Range/Units 12:15 WBC 13.0 H (4.3-11.1) K/mcL Hgb 13.8 (11.5-15.4) g/dL Hct 43.2 (35.3-44.9) % Plt Count 228 (140-400) K/mcL Neutrophils # 11.4 H (1.6-8.9) K/mcL BMP 05/03/18 12:15 Sodium 139 Potassium 3.7 Chloride 104 Carbon Dioxide 27 BUN 10 Creatinine 0.62 Glucose 145 H Calcium 11.3 H Cardiac Enzymes 05/03/18 Range/Units 12:15 Troponin I < 0.03 (< 0.04) ng/mL Liver Function 05/03/18 Range/Units 12:15 Total Bilirubin 0.5 (0.3-1.0) mg/dL Direct Bilirubin 0.1 (0.0-0.2) mg/dL AST 18 (13-39) Units/L ALT 20 (7-52) Units/L Alkaline Phosphatase 88 (34-104) Units/L Albumin 4.0 (3.5-5.7) g/dL Urine 05/03/18 Range/Units 13:55 Urine Color Yellow (Yellow) Urine Clarity Cloudy A (Clear) Urine pH 7.5 (5.0-8.0) pH Units Ur Specific [place] 1.008 L (1.010-1.025) Urine Protein Trace (Neg-Trace) mg/dL Urine Glucose (UA) Normal (Normal) mg/dL - Impressions Impressions Retrograde Pyelogram 05/03/18 00:00 IMPRESSION: Intraprocedural fluoroscopic spot images as above. See separate procedure report for more information. D/ / Samantha Birch Cha, MD / Samantha Birch Cha, MD Interpreting Provider: Samantha Birch Cha, MD Abdomen/Pelvis CT 05/03/18 12:07 IMPRESSION: 7 mm calculus in the distal right ureter just above the UVJ causing moderate right hydroureteronephrosis. Additional bilateral nonobstructing renal calculi. Normal appendix. Cholelithiasis without evidence of acute cholecystitis. Slight sigmoid diverticulosis. D/ / John Mascorro MD / John Mascorro MD Interpreting Provider: John Mascorro MD Consult Discharge Plan - Plan Referrals: Vandana Heart, KARIME [Primary Care Provider] - Mayco Daly [Partnered Physician] - <Markell Dodson - Last Filed: 05/04/18 16:05> Hospitalist Progress Note - Encounter Date of Encounter: 05/04/18 - Subjective Interval History: The history, physical exam, and medical decision making was performed by the medical student either while I was physically present and actively involved or I personally re-performed the exam and medical decision making. I have verified the accuracy of the medical student's documentation with regards to the history, physical exam findings, and medical decision making. - Exam Vitals: Temp Pulse Resp BP Pulse Ox 98.3 F 84 14 108/63 91 05/04/18 15:03 05/04/18 15:03 05/04/18 15:03 05/04/18 15:03 05/04/18 15:03 Exam: Skin: minimal superficial skin breakdown to the superior aspect of the gluteal region. Slightl erythema without purulence or drainage. - Time Spent with Patient Total time spent is greater than 50% in coordination of care (as documented) at patient's floor/unit and/or counseling patient: Internal Medicine: Result - Labs CBC & Chem 7: 05/03/18 12:15 05/03/18 12:15 - Impressions Impressions Retrograde Pyelogram 05/03/18 00:00 IMPRESSION: Intraprocedural fluoroscopic spot images as above. See separate procedure report for more information. D/ / Samantha Birch Cha, MD / Samantha Birch Cha, MD Interpreting Provider: Samantha Birch Cha, MD <Sam Delacruz - Last Filed: 05/04/18 23:39> Hospitalist Progress Note - Encounter Date of Encounter: 05/04/18 - Exam Vitals: Temp Pulse Resp BP Pulse Ox 98.6 F 81 16 133/73 92 05/04/18 23:34 05/04/18 23:34 05/04/18 23:34 05/04/18 23:34 05/04/18 23:34 - Assessment and Plan (1) UTI (urinary tract infection) Current Visit: Yes Status: Acute (2) Ureteral stone with hydronephrosis Current Visit: Yes Status: Acute - Time Spent with Patient Total time spent is greater than 50% in coordination of care (as documented) at patient's floor/unit and/or counseling patient: Internal Medicine: Result - Labs CBC & Chem 7: 05/03/18 12:15 05/03/18 12:15 - Attending Attestation I have examined this patient [id number] and my medical decision-making was reviewed with the Resident Physician and Medical Student. I agree with the documented findings, disposition and treatment plan as described except to the extent set forth below. <Luis Carlos Pablo U - Last Filed: 05/04/18 15:05> (2) UTI (urinary tract infection) Qualifiers: Urinary tract infection type: site unspecified Hematuria presence: with hematuria Qualified Code(s): N39.0 - Urinary tract infection, site not specified; R31.9 - Hematuria, unspecified <Sam Delacruz - Last Filed: 05/04/18 23:39> (1) UTI (urinary tract infection) Qualifiers: Urinary tract infection type: site unspecified Hematuria presence: with hematuria Qualified Code(s): N39.0 - Urinary tract infection, site not sp ecified; R31.9 - Hematuria, unspecified
[2018-05-04] MEDS ORDERED: Ketorolac 15 MG/ML VIAL IVP PRN (14:05)
[2018-05-04] MEDS ORDERED: *HR* OxyCODONE/APAP 5/325 TABLET PO PRN (14:06)
[2018-05-04] MEDS ORDERED: cefTRIAXone 1,000 MG in 0.9 % Sodium Chloride Mini Bag 100 ML IVPB SCH (15:00)
[2018-05-04] MEDS ORDERED: cefTRIAXone 1,000 MG in Water for inj. (sterile) 20 ML 10 ML IVP SCH (15:00)
--- NOTE | 2018-05-04 15:14 | Urology Progress Note ---
Date of Encounter: 05/04/18 Time of Encounter: 15:16 - Assessment and Plan (1) UTI (urinary tract infection) Current Visit: Yes Status: Acute Assessment and plan: Continue antibiotics per primary service Qualifiers: Urinary tract infection type: site unspecified Hematuria presence: with hematuria Qualified Code(s): N39.0 - Urinary tract infection, site not specified; R31.9 - Hematuria, unspecified (2) Ureteral stone with hydronephrosis Current Visit: Yes Status: Acute Assessment and plan: Urgently diverted with stent placement on 05/03/2018 for obstructing right ureteral calculus in setting of active UTI. Plan: Home on oral antibiotics as per medicine. Follow-up with Dr. Camacho for definitive stone management in 2 weeks. (3) Renal calculus, left Current Visit: Yes Status: Acute Assessment and plan: Follow-up with Dr. Camacho in 2 weeks for outpatient definitive stone management. (4) Detrusor instability of bladder Current Visit: Yes Status: Acute Assessment and plan: Complications status post stenting of obstructing right ureteral catheter was in setting of active UTI yesterday. Patient complains of some stent irritation with urgency frequency urgent continence and some discomfort when sitting on edge of bed. Discussed findings and options for management. Plan: Oxybutynin prescription Progress Note Subjective: feels better, tolerating a regular diet, other (Complains of bladder/stent pain when sitting on edge of bed. Additionally with urgency some urgent continence) Objective Initial Vital Signs Temp Pulse Resp BP Pulse Ox 98.5 F 99 18 186/92 96 05/03/18 11:42 05/03/18 11:42 05/03/18 11:42 05/03/18 11:42 05/03/18 11:42 - General physical appearance Present: well developed, well nourished - Respiratory Present: normal respiratory effort - Integumentary Present: no rash, no growths, no abnormal pigmentation - Musculoskeletal Present: normal posture - Psychiatric Present: oriented to time, oriented to person, oriented to place - Labs 05/03/18 12:15 05/03/18 12:15 Consult Discharge Plan - Plan Referrals: Vandana Heart, KARIME [Primary Care Provider] - Mayco Daly [Partnered Physician] -
[2018-05-05 01:54] LABS: Basophils % 0.4 %; Eosinophils # 0.1 K/mcL (0.0-0.6); Hematocrit 35.8 % (35.3-44.9); Immature Granulocytes % 0.2 % (0-4); Lymphocytes # 1.7 K/mcL (0.6-4.6); Lymphocytes % 17.3 %; Mean Corpuscular HGB Conc 31.8 g/dL (31.6-35.5); Mean Corpuscular Hemoglobin 29.2 pg (28.0-33.3); Mean Corpuscular Volume 91.6 fL (83.0-100.0); Monocytes # 0.7 K/mcL (0.0-1.3); Monocytes % 6.9 %; Neutrophils # 7.4 K/mcL (1.6-8.9); Platelet Count 185 K/mcL (140-400); Red Blood Count 3.91 M/mcL (3.82-4.97); Red Cell Distribution Width 14.6 % (11.5-14.5); Segmented Neutrophils % 74.2 %
[2018-05-05 01:59] LABS: Hemoglobin 11.4 g/dL (11.5-15.4)
[2018-05-05 02:16] LABS: BUN/Creatinine Ratio 17 (6-26); Blood Urea Nitrogen 12 mg/dL (8-23); Calcium 9.9 mg/dL (8.6-10.3); Carbon Dioxide 27 mEq/L (23-29); Chloride 109 mEq/L (98-107); Glucose 101 mg/dL (70-105); Osmolality,Calculated 290 (280-300); Potassium 3.4 mEq/L (3.5-5.1); Sodium 140 mEq/L (136-145); eGFR For Non-African Americans > 60 (> 60)
--- NOTE | 2018-05-05 07:31 | Urology Progress Note ---
Date of Encounter: 05/05/18 Time of Encounter: 07:27 - Assessment and Plan (1) Ureteral stone with hydronephrosis Current Visit: Yes Status: Acute Assessment and plan: current cultures pending but may be same as late march. pt stable and only experiencing stent discomfort. ok with discharge per standpoint when reliable culture available. my office will contact pt to schedule stone extraction next week. I will email ENT regarding parathyroid surgery. Progress Note Subjective: feels better Narrative: stent discomfort Objective Initial Vital Signs Temp Pulse Resp BP Pulse Ox 98.5 F 99 18 186/92 96 05/03/18 11:42 05/03/18 11:42 05/03/18 11:42 05/03/18 11:42 05/03/18 11:42 - General physical appearance Present: no distress - Additional Exam pt crying. - Labs 05/05/18 01:43 05/05/18 01:43 Diabetes panel 05/05/18 Range/Units 01:43 Sodium 140 (136-145) mEq/L Potassium 3.4 L (3.5-5.1) mEq/L Chloride 109 H (98-107) mEq/L Carbon Dioxide 27 (23-29) mEq/L BUN 12 (8-23) mg/dL Creatinine 0.70 (0.60-1.20) mg/dL Glucose 101 (70-105) mg/dL Calcium 9.9 (8.6-10.3) mg/dL Calcium panel 05/05/18 Range/Units 01:43 Calcium 9.9 (8.6-10.3) mg/dL Pituitary panel 05/05/18 Range/Units 01:43 Sodium 140 (136-145) mEq/L Potassium 3.4 L (3.5-5.1) mEq/L Chloride 109 H (98-107) mEq/L Carbon Dioxide 27 (23-29) mEq/L BUN 12 (8-23) mg/dL Creatinine 0.70 (0.60-1.20) mg/dL Glucose 101 (70-105) mg/dL Calcium 9.9 (8.6-10.3) mg/dL Adrenal panel 05/05/18 Range/Units 01:43 Sodium 140 (136-145) mEq/L Potassium 3.4 L (3.5-5.1) mEq/L Chloride 109 H (98-107) mEq/L Carbon Dioxide 27 (23-29) mEq/L BUN 12 (8-23) mg/dL Creatinine 0.70 (0.60-1.20) mg/dL Glucose 101 (70-105) mg/dL Calcium 9.9 (8.6-10.3) mg/dL Consult Discharge Plan - Plan Referrals: Vandana Heart, KARIME [Primary Care Provider] - Mayco Daly [Partnered Physician] -
[2018-05-05] MEDS: Multivit/Ca/Min/Fe/FA 1 TAB TABLET PO SCH (07:57)
[2018-05-05] MEDS: Aspirin Enteric Coated 81 MG Tablet PO SCH (07:57)
--- NOTE | 2018-05-05 10:02 | Discharge Summary ---
<Luis Carlos Pablo U - Last Filed: 05/05/18 09:59> - NOTES TO OUTPATIENT PROVIDER Notes to Outpatient Provider: Follow up with urology for kidney stone extraction from right UVJ. Follow up with ENT for PTH adenoma surgery Date of Encounter: 05/05/18 Time of Encounter: 08:30 - Discharge Diagnosis (1) Ureteral stone with hydronephrosis Priority: Primary Status: Acute (2) UTI (urinary tract infection) Priority: Secondary Status: Acute Qualifiers: Urinary tract infection type: site unspecified Hematuria presence: with hematuria Qualified Code(s): N39.0 - Urinary tract infection, site not specified; R31.9 - Hematuria, unspecified Hospital course: Ms. Sandra is a 68 year old female who presented to the ED on 05/03/18 with abdominal pain that radiated to lower abdomen and back. She had no dysria or v aginal discharge, but did admit to nausea. No fever or chills. 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 Abdominal/pelvic region imaging showed a right 7 mm calculus at the UVJ which lead to hydronephrosis along with a UA that was positive. Urology was consulted and placed a stent for urinary diversion. Empiric treatment was started with Rocephin and Vancomycin based on a UTI pt had that was positive for Citrobacter and MRSA near the end of March 2018. Pt tolerated the stent placement well with relief of symptoms. Urine cultures came back positive for Citrobacter and MRSA. Pt will be treated with abx course. Pt also has hx of urinary incontinence and wears adult diapers, pt educated on good hygeine and regular changing of adult diapers once used to help prevent future recurrent UTI's. Urology will call pt in 1 week for extraction of stone right UVJ calculus. Urology will also consult with ENT for parathyroid adenoma surgery. Pt is hemodynamically stable, good kidney function, and no signs of distress. Pt wants to be discharged and will follow up with urology. Discharge discussed with: patient - Time Spent with Patient Total time spent providing and/or coordinating discharge services: - Discharge Medications Prescriptions: OxyCODONE/APAP 5/325 [Percocet 5/325 MG] 1 each PO Q6HR PRN 2 Days #8 tablet PRN Reason: Severe Pain Sulfamethoxazole/Trimeth DS [Bactrim DS] 1 each PO BID 13 Days #26 tablet Home Medications: Aspirin Enteric Coated [Aspirin EC] 81 mg PO DAILY 01/21/17 [History] Levothyroxine [Synthroid] 175 mcg PO QAM 01/21/17 [History] Multivitamin [One Daily Essential] 1 each PO DAILY 03/09/18 [History] OxyCODONE/APAP 5/325 [Percocet 5/325 MG] 1 each PO Q6HR PRN 2 Days #8 tablet 05/05/18 [Rx] Sulfamethoxazole/Trimeth DS [Bactrim DS] 1 each PO BID 13 Days #26 tablet 05/05/18 [Rx] Allergies/Adverse Reactions: Allergy/AdvReac Type Severity Reaction Status Date / Time No Known Allergies Allergy Verified 05/03/18 15:23 Date of admission: 05/03/18 14:54 Primary care physician: Vandana Heart CNP Consults: 05/04/18 13:29 Consult to Urology [CONS] Routine Consulting Provider: [facility] [place] Reason for Consult: nephrolithiasis Call Completed: Yes Discharging clinician: Sam Delacruz Anticipated date of discharge: 05/05/18 - Constitutional Vitals: Temp Pulse Resp BP Pulse Ox 98.4 F 71 15 146/70 95 05/05/18 07:21 05/05/18 07:21 05/05/18 07:21 05/05/18 07:21 05/05/18 08:09 General appearance: Present: cooperative, A&O X 3, pleasant, answers questions appropriately Exam: General: Patient is alert, mild distress, oriented x 3 Head: atraumatic, normocephalic, ENT: Mucous membranes moist Neck: normal inspection, trachea midline, full ROM Chest: normal inspection, symmetric chest rise Respiratory: Good respiratory effort. Normal breath sounds. No wheezing or crackles. Cardiovascular: Regular rate and rhythm. s1 and s2 normal No clicks, rubs, gallops, or murmurs. No pedal edema Abdomen: Abdomen is soft, suprapubic tenderness. Bowel sounds are present Musculoskeletal: Spontaneously moving all extremities Skin: minimal superficial skin breakdown to the superior aspect of the gluteal region. Slightl erythema without purulence or drainage. Neuro: Alert oriented x 3 normal cranial nerves, no focal deficits Psych: Patient's affect is normal - Patient Status Disposition: Home, Self-Care Overall status at discharge: patient is progressing back to baseline - Discharge Instructions Instructions: Oxycodone/Acetaminophen (By mouth), Kidney Stones (GEN) Follow Up With: Vandana Heart CNP [Primary Care Provider] - (Office requires patient to call and make appointment. Thank you) Mayco Daly [Partnered Physician] - (Office will call and give patient date and time for follow up. Thank you) - Diet and Activity Activity: increase activity as tolerated Diet: low fat, low cholesterol, low salt diet <WestKylahlorenzo Mcdonald - Last Filed: 05/05/18 14:11> - NOTES TO OUTPATIENT PROVIDER Notes to Outpatient Provider: Follow up with urology outpatient in one week for stone extraction. PCP follow up in 3-5 or sooner for re-evaluation. Follow up with ENT for adenoma surgery Date of Encounter: 05/05/18 - Discharge Diagnosis (1) Ureterolithiasis Priority: Primary Status: Acute (2) UTI (urinary tract infection) Priority: Secondary Status: Acute Qualifiers: Urinary tract infection type: site unspecified Hematuria presence: with hematuria Qualified Code(s): N39.0 - Urinary tract infection, site not specified; R31.9 - Hematuria, unspecified (3) Elevated WBC count Priority: Secondary Status: Resolved Qualifiers: Leukocytosis type: unspecified Qualified Code(s): D72.829 - Elevated white blood cell count, unspecified Hospital course: Ms. Sandra is a 68 year old female ED on 05/03/18 with abdominal pain that radiated to lower abdomen and back. She had no dyusria or vaginal discharge, but did admit to nausea. No fever or chills. 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 Abdominal/pelvic region imaging showed a right 7 mm calculus at the UVJ which lead to hydronephrosis along with a UA that was positive. Urology was consulted and placed a stent for urinary diversion. Empiric treatment was started with Rocephin and Vancomycin based on recent history of UTI that was positive for Citrobacter and MRSA near the end of March 2018. On admission, patient had mild leukocytosis of 13, on follow up today, WBC within normal limits, serum creatinine remained within normal limits. Pt tolerated stent placement well with significant relief of symptoms. Urine cultures came back positive for Citrobacter and MRSA. Pt also has hx of urinary incontinence and wears adult diapers, pt educated on good hygeine and regular changing of adult diapers once used to help prevent future recurrent UTI's. Chronic conditions were managed. Urology will call pt in 1 week for extraction of stone right UVJ calculus. Urology will also consult with ENT for parathyroid adenoma surgery. Pt is hemodynamically stable, and no signs of distress. Pt wants to be discharged and will follow up with urology. Patient will be discharged on Bactrim DS BID for 13 days. Patient agrees with discharge and disposition. Understands follow up and return precautions. Discharge discussed with: patient - Time Spent with Patient Total time spent providing and/or coordinating discharge services: Less than 30 minutes Date of admission: 05/03/18 14:54 Primary care physician: Vandana Heart CNP Consults: 05/04/18 13:29 Consult to Urology [CONS] Routine Consulting Provider: [facility] Reason for Consult: nephrolithiasis Call Completed: Yes Discharging clinician: Markell Dodson - Constitutional Vitals: Temp Pulse Resp BP Pulse Ox 99.2 F 77 14 115/65 93 05/05/18 11:47 05/05/18 11:47 05/05/18 11:47 05/05/18 11:47 05/05/18 11:47 Exam: General: Patient is alert, mild distress, oriented x 3 Head: atraumatic, normocephalic, ENT: Mucous membranes moist Neck: normal inspection, trachea midline, full ROM Chest: normal inspection, symmetric chest rise Respiratory: Good respiratory effort. Normal breath sounds. No wheezing or crackles. Cardiovascular: Regular rate and rhythm. s1 and s2 normal No clicks, rubs, gallops, or murmurs. No pedal edema Abdomen: Abdomen is soft, suprapubic tenderness. Bowel sounds are present Musculoskeletal: Spontaneously moving all extremities Skin: minimal superficial skin breakdown without change from yesterday to the superior aspect of the gluteal region. Slight erythema without purulence or drainage. Neuro: Alert oriented x 3 normal cranial nerves, no focal deficits Psych: Patient's affect is normal - Patient Status Overall status at discharge: patient is progressing back to baseline - Diet and Activity Activity: increase activity as tolerated Diet: low fat, low cholesterol, low salt diet <Sam Delacruz - Last Filed: 05/05/18 20:18> Date of Encounter: 05/05/18 - Discharge Diagnosis (1) UTI (urinary tract infection) Status: Acute Qualifiers: Urinary tract infection type: site unspecified Hematuria presence: with hematuria Qualified Code(s): N39.0 - Urinary tract infection, site not specified; R31.9 - Hematuria, unspecified (2) Ureteral stone with hydronephrosis Status: Acute Hospital course: Ms. Sandra is a 68 year old female - Time Spent with Patient Total time spent providing and/or coordinating discharge services: Date of admission: 05/03/18 14:54 Primary care physician: Vandana Heart CNP Consults: 05/04/18 13:29 Consult to Urology [CONS] Routine Consulting Provider: [facility] Reason for Consult: nephrolithiasis Call Completed: Yes - Constitutional Vitals: Temp Pulse Resp BP Pulse Ox 99.2 F 77 14 115/65 93 05/05/18 11:47 05/05/18 11:47 05/05/18 11:47 05/05/18 11:47 05/05/18 11:47 - Attending Attestation I have examined this patient [id number] and my medical decision-making was reviewed with the Resident Physician and Medical Student. I agree with the documented findings, disposition and treatment plan as described except to the extent set forth below.
[2018-05-05 11:48] VITALS: BP 115/65
[2018-05-05] MEDS ORDERED: Aminoglycoside Consult 1 EACH MC ONE (14:32)
== END 2018-05-05 14:33 | disposition home or self-care (01) ==
LOC: EMEROOARM 11:28 → 3ANU 11:28 → SUATTDRO 14:54 → 3ANU 15:04
PROVIDERS: ADMIT Internal Medicine Cardiovascular Disease; ATTEND Student in an Organized Health Care Education/Training Program

== ENCOUNTER 2019-08-23 22:41 | Inpatient (IN) ==
[2019-08-23] MEDS ORDERED: 0.9 % Sodium Chloride 1,000 ML IVC ONE (23:41)
[2019-08-23] MEDS ORDERED: *HR* FentaNYL (PF) 100 MCG/2 ML VIAL IVP ONE (23:41)
[2019-08-23] MEDS ORDERED: Ondansetron 4 MG/2 ML VIAL IVP ONE (23:41)
[2019-08-24 00:05] LABS: Basophils % 0.2 %; Eosinophils % 0.1 %; Hematocrit 47.5 % (35.3-44.9); Hemoglobin 15.8 g/dL (11.5-15.4); Immature Granulocytes % 0.3 % (0-4); Lymphocytes % 5.9 %; Mean Corpuscular HGB Conc 33.3 g/dL (31.6-35.5); Mean Corpuscular Volume 96.3 fL (83.0-100.0); Mean Platelet Volume 8.9 fL (9.4-12.4); Monocytes # 0.7 K/mcL (0.0-1.3); Platelet Count 180 K/mcL (140-400); Red Blood Count 4.93 M/mcL (3.82-4.97); Red Cell Distribution Width 12.9 % (11.5-14.5); Segmented Neutrophils % 89.5 %; White Blood Count 16.7 K/mcL (4.3-11.1)
[2019-08-24 00:24] LABS: Bilirubin,Urine Negative (Negative); Blood,Urine Trace (Negative); Clarity,Urine Cloudy (Clear); Color,Urine Yellow (Yellow); Glucose,Urine (UA) Normal (Normal); Ketones,Urine 15 mg/dL (Negative); Leukocyte Esterase,Urine Moderate (Negative); Nitrite,Urine Negative (Negative); PH,Urine 6.5 pH Units (5.0-8.0); Protein,Urine Trace mg/dL (Neg-Trace); Specific Gravity,Urine 1.027 (1.010-1.025); Urobilinogen,Urine Normal (Normal)
[2019-08-24 00:25] LABS: BUN/Creatinine Ratio 24 (6-26); Blood Urea Nitrogen 19 mg/dL (8-23); Calcium 9.4 mg/dL (8.6-10.3); Carbon Dioxide 25 mEq/L (23-29); Chloride 102 mEq/L (98-107); Glucose 150 mg/dL (70-105); Osmolality,Calculated 283 (280-300); Potassium 3.8 mEq/L (3.5-5.1); Sodium 134 mEq/L (136-145); eGFR For African Americans > 60 (> 60); eGFR For Non-African Americans > 60 (> 60)
[2019-08-24 00:26] LABS: Bacteria,Urine Moderate per hpf (None-Few); Hyaline Casts,Urine None Seen per lpf (None-Few); Squamous Epithelial Cell,Urine Moderate per lpf (None-Few); WBC,Urine TNTC per hpf (0-3)
[2019-08-24 00:28] LABS: Alanine Aminotransferase 16 Units/L (7-52); Albumin 4.4 g/dL (3.5-5.7); Albumin/Globulin Ratio 1.5 (1.1-2.2); Alkaline Phosphatase 75 Units/L (34-104); Aspartate Amino Transferase 17 Units/L (13-39); Bilirubin,Direct 0.1 mg/dL (0.0-0.2); Bilirubin,Indirect 0.5 mg/dL (0.0-1.0); Bilirubin,Total 0.6 mg/dL (0.3-1.0); Globulin 2.9 g/dL (2.4-3.5); Lipase 13 Units/L (11-82); Total Protein 7.3 g/dL (6.4-8.9)
[2019-08-24 00:29] LABS: Troponin I < 0.03 ng/mL (< 0.04)
[2019-08-24] MEDS ORDERED: 0.9 % Sodium Chloride 1,000 ML IVC ONE (01:20)
[2019-08-24] MEDS ORDERED: *HR* FentaNYL (PF) 100 MCG/2 ML VIAL IVP ONE (01:39)
[2019-08-24 01:45] LABS: Prothrombin Time 11.8 Seconds (9.4-12.1)
[2019-08-24 01:48] LABS: Activated Partial Thrombo Time 33.4 Seconds (26.0-36.0)
[2019-08-24] MEDS ORDERED: 0.9 % Sodium Chloride 1,000 ML IVC SCH (02:00)
[2019-08-24] MEDS ORDERED: Dextrose Gel 15 GM/37.5 ML TUBE PO PRN ×4 (03:09→09:55)
[2019-08-24] MEDS ORDERED: *HR* Dextrose 50 % in Water (Syg) 50 ML SYRINGE IVP PRN ×2 (03:09→09:55)
[2019-08-24] MEDS ORDERED: Naloxone 0.4 MG/ML INJ IVP PRN ×2 (03:09→09:55)
[2019-08-24] MEDS ORDERED: D5% in Water 1,000 ML IVC PRN ×2 (03:09→09:55)
[2019-08-24] MEDS ORDERED: Vancomycin (wt based) 1,000 MG VIAL IVPB SCH (04:00)
[2019-08-24] MEDS: Insulin LISPRO 300 UNITS/3 ML VIAL SQ SCH ×2 (04:22→04:42)
[2019-08-24 04:35] LABS: Basophils % 0.1 %; Hematocrit 47.5 % (35.3-44.9); Hemoglobin 15.4 g/dL (11.5-15.4); Immature Granulocytes % 0.3 % (0-4); Lymphocytes # 0.4 K/mcL (0.6-4.6); Lymphocytes % 3.3 %; Mean Corpuscular HGB Conc 32.4 g/dL (31.6-35.5); Mean Corpuscular Hemoglobin 31.6 pg (28.0-33.3); Mean Corpuscular Volume 97.3 fL (83.0-100.0); Mean Platelet Volume 8.9 fL (9.4-12.4); Monocytes # 0.1 K/mcL (0.0-1.3); Monocytes % 1.1 %; Neutrophils # 11.7 K/mcL (1.6-8.9); Platelet Count 146 K/mcL (140-400); Red Blood Count 4.88 M/mcL (3.82-4.97); Segmented Neutrophils % 95.2 %; White Blood Count 12.3 K/mcL (4.3-11.1)
[2019-08-24 05:00] LABS: BUN/Creatinine Ratio 19 (6-26); Blood Urea Nitrogen 16 mg/dL (8-23); Calcium 8.4 mg/dL (8.6-10.3); Carbon Dioxide 23 mEq/L (23-29); Chloride 103 mEq/L (98-107); Glucose 163 mg/dL (70-105); Magnesium 1.6 mg/dL (1.6-2.6); Osmolality,Calculated 285 (280-300); Phosphorous 2.7 mg/dL (2.7-4.5); Potassium 3.8 mEq/L (3.5-5.1); Sodium 135 mEq/L (136-145); Troponin I < 0.03 ng/mL (< 0.04); eGFR For African Americans > 60 (> 60); eGFR For Non-African Americans > 60 (> 60)
[2019-08-24] MEDS ORDERED: *HR* Heparin 5,000 UNIT/ML VIAL SQ SCH (06:00)
[2019-08-24 07:01] LABS: Estimated Average Glucose 117 mg/dl
[2019-08-24] MEDS ORDERED: Ondansetron 4 MG/2 ML VIAL IVP ONE (08:03)
[2019-08-24] MEDS ORDERED: *HR* Meperidine 25 MG/ML SYRINGE IVP PRN (08:03)
[2019-08-24] MEDS ORDERED: Albuterol 2.5 MG/3 ML NEBULIZER IH PRN (08:03)
[2019-08-24] MEDS ORDERED: *HR* HYDROmorphone PF 0.5 MG/0.5 ML SYRINGE IVP PRN (08:03)
[2019-08-24] MEDS ORDERED: *HR* Promethazine 25 MG/ML VIAL IVP PRN (08:03)
[2019-08-24] MEDS ORDERED: *HR* OxyCODONE Immed Rel 5 MG TABLET PO PRN (08:03)
[2019-08-24] MEDS ORDERED: *HR* FentaNYL (PF) 100 MCG/2 ML VIAL ONE (08:21)
[2019-08-24] MEDS ORDERED: Lidocaine -MPF 2% 2 ML VIAL ONE (08:21)
[2019-08-24] MEDS ORDERED: *HR* Propofol 200 MG/20 ML VIAL IVP ONE (08:21)
[2019-08-24] MEDS ORDERED: Ondansetron 4 MG/2 ML VIAL ONE (08:22)
[2019-08-24] MEDS ORDERED: Acetaminophen IV 1,000 MG/100 ML INFUS..BTL ONE (08:39)
[2019-08-24] MEDS ORDERED: Aspirin Enteric Coated 81 MG Tablet PO SCH (09:00)
[2019-08-24] MEDS: 0.9 % Sodium Chloride 1,000 ML IVC SCH (10:15)
[2019-08-24] MEDS: cefTRIAXone 2,000 MG in Water for inj. (sterile) 20 ML IVP SCH (10:58)
[2019-08-24] MEDS ORDERED: 0.9 % Sodium Chloride 500 ML IVC PRN (11:46)
[2019-08-24 14:04] LABS: Acinetobacter baumannii by PCR Not Detected (Not Detect); Enterobacter cloacae Cmplx PCR Not Detected (Not Detect); Enterococcus by PCR Not Detected (Not Detect); Escherichia coli by PCR Not Detected (Not Detect); Klebsiella oxytoca by PCR Not Detected (Not Detect); Klebsiella pneumoniae by PCR Not Detected (Not Detect); Proteus by PCR DETECTED (Not Detect); Staphylococcus aureus by PCR Not Detected (Not Detect); Staphylococcus by PCR Not Detected (Not Detect); Streptococcus agalactiae(B)PCR Not Detected (Not Detect); Streptococcus by PCR Not Detected (Not Detect); Streptococcus pneumoniae PCR Not Detected (Not Detect); Streptococcus pyogenes (A) PCR Not Detected (Not Detect); blaKPC Carbapenem-Resist Gene Not Detected (Not Detect)
[2019-08-24 14:05] LABS: Candida albicans by PCR Not Detected (Not Detect); Candida glabrata by PCR Not Detected (Not Detect); Candida krusei by PCR Not Detected (Not Detect); Candida parapsilosis by PCR Not Detected (Not Detect); Candida tropicalis by PCR Not Detected (Not Detect); Pseudomonas aeruginosa by PCR Not Detected (Not Detect); Serratia marcescens by PCR Not Detected (Not Detect)
[2019-08-24] MEDS ORDERED: levoFLOXacin 750 MG/150 ML 750 MG/150 ML BAG IVPB SCH ×2 (16:00)
[2019-08-24] MEDS: *HR* Heparin 5,000 UNIT/ML VIAL SQ SCH (17:52)
[2019-08-24] MEDS: Acetaminophen 325 MG TABLET PO PRN (18:47)
[2019-08-25] MEDS: Acetaminophen 325 MG TABLET PO PRN (00:51)
[2019-08-25] MEDS: 0.9 % Sodium Chloride 1,000 ML IVC SCH ×2 (00:51→17:50)
[2019-08-25 01:29] LABS: Basophils % 0.2 %; Mean Platelet Volume 9.1 fL (9.4-12.4)
[2019-08-25 01:31] LABS: Eosinophils % 0.2 %; Hematocrit 40.1 % (35.3-44.9); Hemoglobin 12.7 g/dL (11.5-15.4); Immature Granulocytes % 0.4 % (0-4); Immature Platelets 1.4 % (1.1-6.1); Lymphocytes # 0.5 K/mcL (0.6-4.6); Lymphocytes % 5.1 %; Mean Corpuscular HGB Conc 31.7 g/dL (31.6-35.5); Mean Corpuscular Hemoglobin 30.8 pg (28.0-33.3); Mean Corpuscular Volume 97.1 fL (83.0-100.0); Monocytes # 0.5 K/mcL (0.0-1.3); Monocytes % 5.5 %; Platelet Count 102 K/mcL (140-400); Red Blood Count 4.13 M/mcL (3.82-4.97); Red Cell Distribution Width 13.4 % (11.5-14.5); Segmented Neutrophils % 88.6 %; White Blood Count 9.1 K/mcL (4.3-11.1)
[2019-08-25 01:49] LABS: BUN/Creatinine Ratio 17 (6-26); Blood Urea Nitrogen 12 mg/dL (8-23); Calcium 7.7 mg/dL (8.6-10.3); Carbon Dioxide 25 mEq/L (23-29); Chloride 108 mEq/L (98-107); Glucose 90 mg/dL (70-105); Osmolality,Calculated 285 (280-300); Potassium 3.4 mEq/L (3.5-5.1); Sodium 138 mEq/L (136-145); eGFR For African Americans > 60 (> 60); eGFR For Non-African Americans > 60 (> 60)
[2019-08-25 01:57] LABS: Neutrophils # 8.1 K/mcL (1.6-8.9)
[2019-08-25 01:58] LABS: Platelet Estimate Slight Decrease (Normal)
[2019-08-25] MEDS: *HR* Heparin 5,000 UNIT/ML VIAL SQ SCH ×2 (06:04→17:51)
[2019-08-25] MEDS: Aspirin Enteric Coated 81 MG Tablet PO SCH (08:03)
[2019-08-25] MEDS: cefTRIAXone 2,000 MG in Water for inj. (sterile) 20 ML IVP SCH (11:59)
[2019-08-25] MEDS ORDERED: Aminoglycoside Consult 1 EACH MC ONE (12:29)
[2019-08-26 02:06] LABS: Basophils % 0.2 %; Hemoglobin 12.8 g/dL (11.5-15.4); Mean Platelet Volume 8.8 fL (9.4-12.4); Segmented Neutrophils % 81.7 %
[2019-08-26 02:08] LABS: Eosinophils # 0.2 K/mcL (0.0-0.6); Eosinophils % 2.7 %; Hematocrit 39.5 % (35.3-44.9); Immature Granulocytes % 0.2 % (0-4); Lymphocytes # 0.6 K/mcL (0.6-4.6); Lymphocytes % 8.8 %; Mean Corpuscular HGB Conc 32.4 g/dL (31.6-35.5); Mean Corpuscular Volume 98.8 fL (83.0-100.0); Monocytes # 0.4 K/mcL (0.0-1.3); Monocytes % 6.4 %; Neutrophils # 5.1 K/mcL (1.6-8.9); Platelet Count 116 K/mcL (140-400); Red Cell Distribution Width 13.3 % (11.5-14.5); White Blood Count 6.2 K/mcL (4.3-11.1)
[2019-08-26 02:24] LABS: BUN/Creatinine Ratio 19 (6-26); Blood Urea Nitrogen 11 mg/dL (8-23); Carbon Dioxide 28 mEq/L (23-29); Chloride 105 mEq/L (98-107); Glucose 93 mg/dL (70-105); Osmolality,Calculated 285 (280-300); Potassium 3.6 mEq/L (3.5-5.1); Sodium 138 mEq/L (136-145); eGFR For African Americans > 60 (> 60); eGFR For Non-African Americans > 60 (> 60)
[2019-08-26] MEDS: *HR* Heparin 5,000 UNIT/ML VIAL SQ SCH ×2 (06:00→17:58)
[2019-08-26] MEDS ORDERED: MethylPREDNISolone 40 MG/ML VIAL IVP ONE ×2 (06:13→18:05)
[2019-08-26] MEDS: Aspirin Enteric Coated 81 MG Tablet PO SCH (07:52)
[2019-08-26] MEDS ORDERED: levoFLOXacin 750 MG/150 ML 750 MG/150 ML BAG IVPB SCH (09:00)
[2019-08-26] MEDS: 0.9 % Sodium Chloride 1,000 ML IVC SCH ×2 (12:00→21:46)
[2019-08-26] MEDS: Loratadine 10 MG TABLET PO SCH (19:42)
[2019-08-27 05:09] LABS: Hematocrit 39.5 % (35.3-44.9); Hemoglobin 12.6 g/dL (11.5-15.4); Immature Granulocytes % 0.6 % (0-4); Lymphocytes # 0.5 K/mcL (0.6-4.6); Lymphocytes % 9.1 %; Mean Corpuscular HGB Conc 31.9 g/dL (31.6-35.5); Mean Corpuscular Hemoglobin 30.7 pg (28.0-33.3); Mean Corpuscular Volume 96.1 fL (83.0-100.0); Mean Platelet Volume 9.5 fL (9.4-12.4); Monocytes # 0.1 K/mcL (0.0-1.3); Monocytes % 2.1 %; Neutrophils # 4.7 K/mcL (1.6-8.9); Platelet Count 117 K/mcL (140-400); Red Blood Count 4.11 M/mcL (3.82-4.97); Red Cell Distribution Width 13.1 % (11.5-14.5); Segmented Neutrophils % 88.2 %; White Blood Count 5.3 K/mcL (4.3-11.1)
[2019-08-27] MEDS: *HR* Heparin 5,000 UNIT/ML VIAL SQ SCH ×2 (05:22→17:59)
[2019-08-27 05:23] LABS: BUN/Creatinine Ratio 28 (6-26); Blood Urea Nitrogen 13 mg/dL (8-23); Calcium 8.5 mg/dL (8.6-10.3); Carbon Dioxide 28 mEq/L (23-29); Chloride 107 mEq/L (98-107); Glucose 143 mg/dL (70-105); Osmolality,Calculated 293 (280-300); Potassium 3.9 mEq/L (3.5-5.1); Sodium 140 mEq/L (136-145); eGFR For African Americans > 60 (> 60); eGFR For Non-African Americans > 60 (> 60)
[2019-08-27] MEDS: 0.9 % Sodium Chloride 1,000 ML IVC SCH (07:50)
[2019-08-27] MEDS ORDERED: levoFLOXacin 750 MG TABLET PO ONE (09:07)
[2019-08-27] MEDS: Aspirin Enteric Coated 81 MG Tablet PO SCH (10:03)
[2019-08-27] MEDS: Loratadine 10 MG TABLET PO SCH (10:03)
[2019-08-27] MEDS ORDERED: predniSONE 20 MG TABLET PO ONE (11:38)
[2019-08-28] MEDS: *HR* Heparin 5,000 UNIT/ML VIAL SQ SCH ×2 (05:46→18:14)
[2019-08-28 08:25] LABS: Basophils % 0.3 %; Eosinophils # 0.3 K/mcL (0.0-0.6); Eosinophils % 3.7 %; Hematocrit 40.7 % (35.3-44.9); Hemoglobin 13.2 g/dL (11.5-15.4); Immature Granulocytes % 0.8 % (0-4); Lymphocytes # 1.4 K/mcL (0.6-4.6); Lymphocytes % 16.1 %; Mean Corpuscular HGB Conc 32.4 g/dL (31.6-35.5); Mean Corpuscular Hemoglobin 30.8 pg (28.0-33.3); Mean Corpuscular Volume 95.1 fL (83.0-100.0); Mean Platelet Volume 8.6 fL (9.4-12.4); Monocytes # 0.7 K/mcL (0.0-1.3); Monocytes % 8.1 %; Platelet Count 153 K/mcL (140-400); Red Blood Count 4.28 M/mcL (3.82-4.97); Red Cell Distribution Width 13.5 % (11.5-14.5)
[2019-08-28 08:26] LABS: Neutrophils # 6.3 K/mcL (1.6-8.9); White Blood Count 8.8 K/mcL (4.3-11.1)
[2019-08-28 08:45] LABS: BUN/Creatinine Ratio 33 (6-26); Blood Urea Nitrogen 17 mg/dL (8-23); Calcium 8.5 mg/dL (8.6-10.3); Carbon Dioxide 28 mEq/L (23-29); Chloride 107 mEq/L (98-107); Glucose 82 mg/dL (70-105); Osmolality,Calculated 295 (280-300); Potassium 3.3 mEq/L (3.5-5.1); Sodium 142 mEq/L (136-145); eGFR For African Americans > 60 (> 60); eGFR For Non-African Americans > 60 (> 60)
[2019-08-28] MEDS: Aspirin Enteric Coated 81 MG Tablet PO SCH (08:58)
[2019-08-28] MEDS: Ertapenem 1,000 MG in 0.9 % Sodium Chloride Mini Bag 100 ML IVPB SCH (08:58)
[2019-08-28] MEDS: Loratadine 10 MG TABLET PO SCH (08:58)
[2019-08-28] MEDS: predniSONE 20 MG TABLET PO SCH (09:48)
[2019-08-29 06:34] VITALS: BP 125/78
[2019-08-29] MEDS: *HR* Heparin 5,000 UNIT/ML VIAL SQ SCH (07:07)
[2019-08-29] MEDS: Aspirin Enteric Coated 81 MG Tablet PO SCH (07:39)
[2019-08-29] MEDS: Loratadine 10 MG TABLET PO SCH (07:39)
[2019-08-29] MEDS: predniSONE 20 MG TABLET PO SCH (07:39)
[2019-08-29] MEDS: Ertapenem 1,000 MG in 0.9 % Sodium Chloride Mini Bag 100 ML IVPB SCH (07:40)
== END 2019-08-29 12:30 | disposition home or self-care (01) ==
LOC: 3ANU 22:41 → EMEROOARM 22:41 → SUATTDRO 08-24 01:55 → 3ANU 08-24 02:12
PROVIDERS: ADMIT Internal Medicine; ATTEND Internal Medicine

== ENCOUNTER 2021-08-27 02:53 | Inpatient (IN) ==
[2021-08-27] MEDS ORDERED: Ondansetron 4 MG/2 ML VIAL IVP ONE (03:29)
[2021-08-27] MEDS ORDERED: Morphine Sulfate 2 MG/ML SYRINGE IVP ONE (03:29)
[2021-08-27] MEDS ORDERED: 0.9 % Sodium Chloride 1,000 ML IVC ONE (03:29)
[2021-08-27] MEDS ORDERED: Isovue-370 500 ML BOTTLE IVP ONE (03:30)
[2021-08-27 03:44] LABS: Basophils % 0.2 %; Eosinophils # 0.1 K/mcL (0.0-0.6); Hematocrit 47.6 % (35.3-44.9); Hemoglobin 15.8 g/dL (11.5-15.4); Immature Granulocytes % 0.3 % (0-4); Lymphocytes # 1.6 K/mcL (0.6-4.6); Lymphocytes % 18.3 %; Mean Corpuscular HGB Conc 33.2 g/dL (31.6-35.5); Mean Corpuscular Hemoglobin 30.8 pg (28.0-33.3); Mean Corpuscular Volume 92.8 fL (83.0-100.0); Mean Platelet Volume 8.6 fL (9.4-12.4); Monocytes # 0.4 K/mcL (0.0-1.3); Monocytes % 4.8 %; Neutrophils # 6.6 K/mcL (1.6-8.9); Platelet Count 187 K/mcL (140-400); Red Blood Count 5.13 M/mcL (3.82-4.97); Segmented Neutrophils % 75.4 %; White Blood Count 8.7 K/mcL (4.3-11.1)
[2021-08-27 04:05] LABS: Alanine Aminotransferase 14 Units/L (7-52); Albumin 4.1 g/dL (3.5-5.7); Albumin/Globulin Ratio 1.5 (1.1-2.2); Alkaline Phosphatase 74 Units/L (34-104); Amylase 20 Units/L (29-103); Aspartate Amino Transferase 12 Units/L (13-39); BUN/Creatinine Ratio 23 (6-26); Bilirubin,Direct 0.1 mg/dL (0.0-0.2); Bilirubin,Indirect 0.6 mg/dL (0.0-1.0); Bilirubin,Total 0.7 mg/dL (0.3-1.0); Blood Urea Nitrogen 16 mg/dL (8-23); Calcium 9.4 mg/dL (8.6-10.3); Carbon Dioxide 28 mEq/L (23-29); Chloride 100 mEq/L (98-107); Globulin 2.8 g/dL (2.4-3.5); Glucose 147 mg/dL (70-105); Lipase 12 Units/L (11-82); Osmolality,Calculated 288 (280-300); Potassium 3.6 mEq/L (3.5-5.1); Sodium 137 mEq/L (136-145); Total Protein 6.9 g/dL (6.4-8.9); eGFR For African Americans > 60 (> 60); eGFR For Non-African Americans > 60 (> 60)
[2021-08-27] MEDS ORDERED: Piperacillin/Tazobactam 3.375 GM in 0.9 % Sodium Chloride Mini Bag 100 ML IVPB ONE (06:57)
[2021-08-27] MEDS ORDERED: Ondansetron 4 MG/2 ML VIAL IVP PRN (07:26)
[2021-08-27] MEDS ORDERED: Naloxone 0.4 MG/ML INJ IVP PRN ×3 (07:26→14:49)
[2021-08-27 07:44] LABS: Bacteria,Urine Few per hpf (None-Few); Mucus,Urine Few per lpf (None-Few); Squamous Epithelial Cell,Urine Few per hpf (None-Few)
[2021-08-27 08:01] LABS: Bilirubin,Urine Negative (Negative); Blood,Urine Negative (Negative); Clarity,Urine Clear (Clear); Color,Urine Light-Yellow (Yellow); Glucose,Urine (UA) Normal (Normal); Ketones,Urine Negative (Negative); Leukocyte Esterase,Urine Small (Negative); Nitrite,Urine Positive (Negative); Protein,Urine Negative (Neg-Trace); Specific Gravity,Urine > 1.030 (1.010-1.025); Urobilinogen,Urine Normal (Normal)
[2021-08-27] MEDS ORDERED: 0.9 % Sodium Chloride 1,000 ML IVC SCH (08:30)
[2021-08-27] MEDS ORDERED: Ertapenem 1,000 MG in 0.9 % Sodium Chloride Mini Bag 100 ML IVPB ONE (08:34)
[2021-08-27] MEDS ORDERED: *HR* FentaNYL (PF) 100 MCG/2 ML VIAL ONE (10:44)
[2021-08-27] MEDS ORDERED: *HR* Propofol 200 MG/20 ML VIAL IVP ONE (10:44)
[2021-08-27] MEDS ORDERED: *HR* Succinylcholine 200 MG/10 ML VIAL IVP ONE (10:46)
[2021-08-27] MEDS ORDERED: Lidocaine HCL 4 ML Topical Solution (Laryng-O-Jet Kit Sterile Pak) TP ONE (10:46)
[2021-08-27] MEDS ORDERED: Lidocaine -MPF 2% 5 ML VIAL ONE ×2 (10:46→11:40)
[2021-08-27] MEDS ORDERED: Ondansetron 4 MG/2 ML VIAL ONE (10:46)
[2021-08-27] MEDS ORDERED: *HR* HYDROmorphone PF 0.5 MG/0.5 ML SYRINGE IVP PRN (10:47)
[2021-08-27] MEDS ORDERED: *HR* FentaNYL (PF) 100 MCG/2 ML VIAL IVP PRN (10:47)
[2021-08-27] MEDS ORDERED: *HR* HYDROMORPHONE 2 MG/ML VIAL ONE (11:49)
[2021-08-27] MEDS ORDERED: *HR* Rocuronium Bromide 50 MG/5 ML VIAL ONE (11:59)
[2021-08-27] MEDS ORDERED: Clindamycin 900 MG/50 ML 900 MG/50 ML IV.SOLN IVPB ONE (12:17)
[2021-08-27] MEDS ORDERED: Acetaminophen IV 1,000 MG/100 ML BAG IVPB ONE (12:22)
[2021-08-27] MEDS ORDERED: Sugammadex Sodium 200 MG/2 ML VIAL IV ONE (12:31)
[2021-08-27] MEDS ORDERED: Ringers Solution, Lactated 1,000 ML ONE (13:21)
[2021-08-27] MEDS ORDERED: Piperacillin/Tazobactam 3.375 GM in 0.9 % Sodium Chloride Mini Bag 100 ML IVPB SCH (16:00)
[2021-08-27] MEDS: 0.9 % Sodium Chloride 1,000 ML IVC SCH (16:37)
[2021-08-28] MEDS: 0.9 % Sodium Chloride 1,000 ML IVC SCH (05:38)
[2021-08-28] MEDS: *HR* Enoxaparin 40 MG/0.4 ML SYRINGE SQ SCH (07:45)
[2021-08-28] MEDS: Multivit/Ca/Min/Fe/FA 1 TAB TABLET PO SCH (09:34)
[2021-08-28] MEDS: hydroCHLOROthiazide 25 MG TABLET PO SCH (09:34)
[2021-08-28] MEDS: Potassium Citrate 10 MEQ TABLET.ER PO SCH (09:37)
[2021-08-28] MEDS: Ertapenem 1,000 MG in 0.9 % Sodium Chloride Mini Bag 100 ML IVPB SCH (11:04)
[2021-08-28] MEDS: Acetaminophen 325 MG TABLET PO SCH ×2 (11:04→17:13)
[2021-08-28] MEDS: Ibuprofen 800 MG TABLET PO SCH ×2 (11:04→17:13)
[2021-08-29] MEDS: Acetaminophen 325 MG TABLET PO SCH ×4 (01:02→17:15)
[2021-08-29] MEDS: Ibuprofen 800 MG TABLET PO SCH ×3 (01:02→17:16)
[2021-08-29] MEDS: *HR* Enoxaparin 40 MG/0.4 ML SYRINGE SQ SCH (06:11)
[2021-08-29] MEDS: Multivit/Ca/Min/Fe/FA 1 TAB TABLET PO SCH (09:12)
[2021-08-29] MEDS: Potassium Citrate 10 MEQ TABLET.ER PO SCH (09:12)
[2021-08-29] MEDS: hydroCHLOROthiazide 25 MG TABLET PO SCH (09:12)
[2021-08-29] MEDS: Ertapenem 1,000 MG in 0.9 % Sodium Chloride Mini Bag 100 ML IVPB SCH (11:50)
[2021-08-30] MEDS: Ibuprofen 800 MG TABLET PO SCH ×2 (02:32→11:58)
[2021-08-30] MEDS: Acetaminophen 325 MG TABLET PO SCH ×3 (02:32→12:04)
[2021-08-30 02:59] LABS: Hematocrit 39.6 % (35.3-44.9); Mean Corpuscular HGB Conc 32.6 g/dL (31.6-35.5); Mean Corpuscular Hemoglobin 31.2 pg (28.0-33.3); Mean Corpuscular Volume 95.9 fL (83.0-100.0); Platelet Count 200 K/mcL (140-400); Red Blood Count 4.13 M/mcL (3.82-4.97); Red Cell Distribution Width 13.6 % (11.5-14.5); White Blood Count 8.2 K/mcL (4.3-11.1)
[2021-08-30 03:00] LABS: Hemoglobin 12.9 g/dL (11.5-15.4)
[2021-08-30 03:17] LABS: BUN/Creatinine Ratio 27 (6-26); Blood Urea Nitrogen 15 mg/dL (8-23); Calcium 9.2 mg/dL (8.6-10.3); Carbon Dioxide 32 mEq/L (23-29); Chloride 102 mEq/L (98-107); Glucose 94 mg/dL (70-105); Osmolality,Calculated 289 (280-300); Potassium 3.6 mEq/L (3.5-5.1); Sodium 139 mEq/L (136-145); eGFR For African Americans > 60 (> 60); eGFR For Non-African Americans > 60 (> 60)
[2021-08-30] MEDS: *HR* Enoxaparin 40 MG/0.4 ML SYRINGE SQ SCH (06:23)
[2021-08-30] MEDS: hydroCHLOROthiazide 25 MG TABLET PO SCH (07:59)
[2021-08-30] MEDS: Multivit/Ca/Min/Fe/FA 1 TAB TABLET PO SCH (08:00)
[2021-08-30] MEDS: Potassium Citrate 10 MEQ TABLET.ER PO SCH (08:00)
[2021-08-30] MEDS: Ertapenem 1,000 MG in 0.9 % Sodium Chloride Mini Bag 100 ML IVPB SCH (11:58)
[2021-08-30 14:32] VITALS: BP 110/69; PULSE 92; TEMP 98.3; O2SAT 90
== END 2021-08-30 15:51 | disposition home or self-care (01) | DRG 331 ==
LOC: 3ANU 02:53 → EMEROOARM 02:53 → 3ANU 08:39 → SUATTDRO 13:16
PROVIDERS: ADMIT Student in an Organized Health Care Education/Training Program; ATTEND Surgery